=== PATIENT | female | born 1950 | race Caucasian/White ===

== ENCOUNTER 2016-12-19 06:31 | Day surgery (SDC) | payer MEDICARE, MEDICAID ==
[~2016-12-19 06:31] MED LIST: Buffered Lidocaine 1% SYRIN* 3 ML/SYR SYRINGE INTRADERM ONE
[2016-12-19] MEDS ORDERED: Silver Nitrate/Potassium Nitr* 1 EA STICK ONE (07:28)
[2016-12-19] MEDS ORDERED: Lidocaine 1% INJ* 10 MG/ML 30 ML SDV ONE (07:37)
[2016-12-19] MEDS ORDERED: Midazolam* 1 MG/ML 5 ML VIAL (5 MG) ONE ×2 (07:52→08:21)
[2016-12-19] MEDS ORDERED: fentaNYL* 50 MCG/ML 2 ML VIAL (100 MCG VIAL) ONE (08:12)
[2016-12-19] MEDS ORDERED: Dexamethasone IV* 4 MG/ML 1 ML (4 MG) ONE (08:15)
[2016-12-19] MEDS ORDERED: HYDROmorphone* 1 MG/ML 1 ML SYR IV PRN (08:35)
[2016-12-19] MEDS ORDERED: diPHENhydraMINE IV* 50 MG/ML 1 ml VIAL (BENADRYL) IV PRN (08:35)
[2016-12-19] MEDS ORDERED: fentaNYL* 50 MCG/ML 2 ML VIAL (100 MCG VIAL) IV PRN (08:35)
[2016-12-19] MEDS ORDERED: Ondansetron INJ* 2 MG/ML VIAL IV PRN (08:35)
[2016-12-19] MEDS ORDERED: Ondansetron INJ* 2 MG/ML VIAL ONE (08:37)
[2016-12-19 10:45] VITALS: BP 145/77
--- NOTE | 2016-12-19 20:57 | OP ---
DATE OF OPERATION: 12/19/16 [facility] DATE OF : 52 SURGEON: Elizabeth Rodriguez MD SPINNING MULE OPERATOR: None. ANESTHESIOLOGIST: Patrick Monahan MD ANESTHESIA: MAC and local. PRE-OP DIAGNOSIS: Postmenopausal bleeding, abnormal ultrasound findings. POST-OP DIAGNOSIS: Postmenopausal bleeding, abnormal ultrasound findings. OPERATIVE PROCEDURE: Hysteroscopy, D and C. ESTIMATED BLOOD LOSS: Minimal. SPECIMENS: Endometrial curettings. FLUIDS: Crystalloid. DRAINS: Bladder was drained of urine prior to the procedure. FINDINGS: On inspection of the uterine cavity, some polypoid appearing tissue was noted in the lower left uterine segment. There is also small ridge of tissue just above that slightly to the left and there were signs in the left upper uterine cavity the endometrium appeared irritated, otherwise the cavity appeared normal. DESCRIPTION OF PROCEDURE: After informed consent was signed, the patient was taken to the operating room where she was given monitored anesthesia care. She was prepped and draped in the dorsal lithotomy position in Yevgeniy stirrups. Speculums were placed into the vagina to expose the cervix. The anterior lip of the cervix was grasped with a single-tooth tenaculum. A paracervical block was given with 16 cc of lidocaine at 2, 5, 7, and 10 o'clock positions around the cervix. The uterus was sounded to 10 cm. Cervix was dilated and the hysteroscope was assembled and inserted through the cervix into the uterine cavity. The previously mentioned findings were noted. The hysteroscope was then removed and a sharp curettage was done. The specimen was sent to pathology for further evaluation. The tenaculum was then removed and good hemostasis was seen with silver nitrate. The speculums were then removed. The patient was cleaned, placed back in the supine position, awakened from anesthesia and moved to the recovery room in stable condition. [id number]/[facility] #: [id number] MTDD
== END 2016-12-19 11:01 | disposition home or self-care (01) ==
LOC: OR 06:31
PROVIDERS: ATTEND Obstetrics & Gynecology
DX: N95.0 Postmenopausal bleeding (principal); R93.8 Abnormal findings on diagnostic imaging of other specified body structures; I47.1 Supraventricular tachycardia; E03.9 Hypothyroidism, unspecified; Z87.891 Personal history of nicotine dependence; E66.9 Obesity, unspecified
CPT/HCPCS: 88305; A9270-GY; J1100; J2001; J2250; J2405; J3010

== ENCOUNTER 2017-05-08 07:00 | Inpatient (IN) | payer MEDICARE, MEDICAID ==
--- NOTE | 2017-05-01 14:40 | HP ---
HISTORY AND PHYSICAL: DATE OF ADMISSION/SURGERY: 05/08/17 SURGEON: Coral Sales MD * (DICTATED BY DANIELA AHMADI) PROCEDURE: Right total knee arthroplasty. CHIEF COMPLAINT: Right knee pain. HISTORY OF PRESENT ILLNESS: Ms. Guardado is a 67-year-old female with complaints of right knee pain secondary to advanced osteoarthritis. She has failed conservative management and has elected to proceed with a right total knee arthroplasty, which is scheduled for 05/08/[address] Sales. PAST MEDICAL HISTORY: Supraventricular tachycardia, GERD, AFib, hyperlipidemia , hypothyroidism. PAST SURGICAL HISTORY: Tonsillectomy, melanoma removal, eye surgery, cardiac catheterization, breast biopsy, appendectomy, D and C, and ankle surgery. CURRENT MEDICATIONS: 1. Digoxin 125 mcg every other day except Friday and Friday. 2. Turmeric. 3. Levothyroxine 25 mcg daily. 4. Lansoprazole 15 mg twice daily. 5. Loratadine 10 mg daily. 6. Nu-Mag. 7. Probiotic. 8. Vitamin D3. 9. Tylenol. 10. Lexapro 10 mg daily. ALLERGIES: To MORPHINE causing hallucinations, PERCOCET causing vomiting. FAMILY HISTORY: Diabetes, hypertension, stroke, cancer, cirrhosis. SOCIAL HISTORY: She is a 67-year-old female. She lives alone. She does not smoke, use drugs or alcohol. REVIEW OF SYSTEMS: A complete 14-point review of systems is reviewed with the patient and is positive for occasional palpitations and hypothyroidism. She denies any anesthesia problems, history of DVT or bleeding disorders. PHYSICAL EXAMINATION GENERAL: She is well developed, well nourished, in no acute distress. VITAL SIGNS: She stands 5 feet 8 inches tall, weighs 248 pounds. Blood pressure 140/80, heart rate 56. HEENT: Normocephalic, atraumatic. NECK: Supple. No palpable lymph nodes. PULMONARY: Lungs are clear to auscultation bilaterally. CARDIO: Regular rate and rhythm. Strong S1, S2. ABDOMEN: Soft, nontender, nondistended. NEUROLOGICAL: She is alert and oriented x3. Cranial nerves II through XII are intact. MUSCULOSKELETAL: Right lower extremity, the skin is intact. She has no open wounds or abrasions. She has tenderness over the medial and lateral joint line. Her lower extremity muscle group strengths are intact at 5/5. She has 2+ dorsalis pedis pulses and intact sensation. ASSESSMENT AND PLAN: Ms. Guardado is a 67-year-old female with complaints of right knee pain secondary to severe osteoarthritis. She has failed conservative management and has elected to proceed with a right total knee arthroplasty, which is scheduled for 05/08/[address] Sales discussed the risks and benefits of the surgery at today's visit and all of her questions were answered. Coumadin and Colace were sent to her pharmacy for postoperative DVT prophylaxis. I have not sent pain medications until we can find out which medicine she can tolerate and she will see Dr. Sales back 2 weeks after the surgery. DANIELA AHMADI [id number]/[facility] #: [id number] MTDD
[~2017-05-08 07:00] MED LIST changes: +Buffered Lidocaine 0.9% SYRIN* 5 ML/SYR SYRINGE INTRADERM ONE; -Buffered Lidocaine 1% SYRIN* 3 ML/SYR SYRINGE INTRADERM ONE; +Famotidine IV* 10 MG/ML 2 ML (20 mg) IV ONE; +HYDROmorphone* 1 MG/ML 1 ML CARPUJECT IV PRN; +PROCHLORPERAZINE INJ 5 MG/ML 2 ML VIAL IV PRN; +fentaNYL* 50 MCG/ML 2 ML VIAL (100 MCG VIAL) IV PRN
[2017-05-08] MEDS ORDERED: Famotidine IV* 10 MG/ML 2 ML (20 mg) ONE (07:31)
[2017-05-08] MEDS ORDERED: ceFAZolin 1 GM ADVAN(*) 1 GM ADDV.VIAL IVPB ONE (07:31)
[2017-05-08] MEDS ORDERED: ceFAZolin 2 GM PREMIX (*) 50 ML IVPB ONE (07:31)
[2017-05-08] MEDS ORDERED: fentaNYL* 50 MCG/ML 2 ML VIAL (100 MCG VIAL) ONE (08:10)
[2017-05-08] MEDS ORDERED: KETAMINE HCL* 50 MG/ML 10 ML VIAL ONE (08:10)
[2017-05-08] MEDS ORDERED: Midazolam* 1 MG/ML 10 ML VIAL (10 MG) ONE (08:10)
[2017-05-08] MEDS ORDERED: EPHEDrine (Pressors)* 50 MG/ML VIAL IV PUSH PRN (10:28)
[2017-05-08] MEDS ORDERED: Nalbuphine* 20 MG/ML 1 ML VIAL IV PRN (10:28)
[2017-05-08] MEDS ORDERED: Ketorolac INJ* 15 MG/ML 1 ML VIAL IV PRN (10:28)
[2017-05-08] MEDS ORDERED: Ondansetron INJ* 2 MG/ML VIAL IV PRN (10:28)
[2017-05-08] MEDS ORDERED: PROCHLORPERAZINE INJ 5 MG/ML 2 ML VIAL IV PRN (10:28)
[2017-05-08] MEDS ORDERED: diPHENhydraMINE IV* 50 MG/ML 1 ml VIAL (BENADRYL) IV PRN (10:28)
[2017-05-08] MEDS ORDERED: Lactated Ringers 500 ml BAG* 500 ML IV PRN (10:28)
[2017-05-08] MEDS ORDERED: HYDROcodone/ACETAMIN 5-325 MG* 1 TAB PO PRN (10:28)
[2017-05-08] MEDS ORDERED: Hetastarch in NS* 200 ML IV PRN (10:28)
[2017-05-08] MEDS ORDERED: Ropivacaine 0.2% EPIDURAL* 200 MG/100 ML BAG EPIDURAL SCH (11:00)
[2017-05-08] MEDS ORDERED: Hetastarch in NS* 500 ML IV ONE (11:07)
[2017-05-08] MEDS ORDERED: Ropivacaine 0.2% EPIDURAL* 200 MG/100 ML BAG EPIDURAL ONE (11:11)
[2017-05-08] MEDS ORDERED: Dexamethasone IV* 4 MG/ML 1 ML (4 MG) ONE (12:10)
[2017-05-08] MEDS ORDERED: Lidocaine 2% PF * 5 ML VIAL ONE (12:10)
[2017-05-08] MEDS ORDERED: Phenylephrine IV* 40 MCG/ML 10 ML SYRINGE ONE (12:10)
[2017-05-08] MEDS ORDERED: Ondansetron INJ* 2 MG/ML VIAL ONE (12:10)
[2017-05-08] MEDS ORDERED: Propofol* 10 MG/ML 20 ML BTL IV PUSH ONE (12:10)
[2017-05-08] MEDS ORDERED: Scopolamine 1.5 mg* PATCH ONE (12:10)
[2017-05-08] MEDS ORDERED: Propofol* 500 MG/50 ML BTL ONE (12:11)
[2017-05-08] MEDS ORDERED: Bisacodyl SUPP* 10 MG SUPP PR PRN (12:37)
[2017-05-08] MEDS ORDERED: ceFAZolin 1 GM VIAL(*) 1 GM in NS 0.9% 50 ML* 50 ML IVPB SCH (13:00)
--- NOTE | 2017-05-08 13:36 | RAD ---
Indication: Immediate postop exam following RIGHT total knee replacement. Comparison: April 30, 2017 Technique: Portable AP and cross table lateral views RIGHT knee. Report: Status post total knee replacement. Anterior surgical drain in place. Post-op fluid and gas is seen in the joint space and anterior subcutaneous tissues. Alignment is anatomic. No periprosthetic fracture evident. IMPRESSION: Unremarkable immediate postoperative appearance following RIGHT knee replacement.
[2017-05-08] MEDS ORDERED: PROCHLORPERAZINE INJ 5 MG/ML 2 ML VIAL ONE (14:35)
--- NOTE | 2017-05-08 16:16 | CONS ---
HOSPITAL MEDICINE CONSULTATION REPORT: DATE OF CONSULT: 05/08/17 ATTENDING PHYSICIAN: Coral Sales MD CONSULTING PHYSICIAN: Lis Cooper MD (dictation provided by Patsy Hung NP) . CHIEF COMPLAINT: Right knee pain. HISTORY OF PRESENT ILLNESS: Ms. Guardado is a 67-year-old female with a past medical history of atrial fibrillation, who presents to the hospital today with plan for elective right total knee replacement. Please see the dictated H and P from Dr. Sales for complete details. In brief, the patient had initially opted for medical therapy, but when conservative measures failed, planned for a right total knee replacement today. Ms. Guardado was seen in consultation preoperatively by Dr. Ye from Cardiology. He did request a Holter monitor, which showed no high risk features on the monitor and only some mild bradycardia. He did recommend that the patient decrease her digoxin to a Friday , Friday, Friday dose only, but that no further cardiac testing was indicated. He also stated that the patient could hold aspirin prior to surgery and could be started when approved per Orthopedics. The patient is not currently anticoagulated with a CHADS VASC-2 score of 1. Radha states that she was feeling well prior to surgery other than her knee pain with no acute complaints. PAST MEDICAL HISTORY: 1. Osteoarthritis. 2. Atrial fibrillation. 3. Paroxysmal supraventricular tachycardia. 4. GERD. 5. Obesity. MEDICATIONS: As outpatient are: 1. Aspirin 81 mg p.o. q.p.m. 2. Lansoprazole 15 mg p.o. b.i.d. 3. Tylenol 1000 mg p.o. b.i.d. 4. Cholecalciferol 5000 units p.o. q.p.m. 5. Digoxin 0.125 mg p.o. Friday, Friday, Friday. 6. Lexapro 10 mg p.o. q.p.m. 7. Levothyroxine 25 mcg p.o. q.a.m. 8. Magnesium chloride 71.5 mg p.o. q.p.m. 9. Multivitamin with mineral 1 tab p.o. q.p.m. 10. Turmeric 600 mg 2 caps p.o. q.p.m. 11. Ultimate probiotic 1 cap p.o. q.p.m. ALLERGIES: MORPHINE and OXYCODONE. FAMILY HISTORY: The patient reports history of diabetes, hypertension, stroke, cancer, and cirrhosis in the family. SOCIAL HISTORY: No report of alcohol, tobacco, or drug use. The patient lives alone. REVIEW OF SYSTEMS: A 14-point review of systems was completed with the patient and all those not mentioned above are negative. PHYSICAL EXAM: Vital Signs: Temperature 97.0, pulse rate 59, respiratory rate 16, O2 saturation 100% on 5 L nasal cannula in the PACU, blood pressure 130/64. General: Ms. Guardado is sitting up in the bed. She is in no acute distress. Neuro: She is alert and oriented x3. She moves all extremities equally. There is no facial asymmetry or focal weakness. Extraocular movements are intact. Heart: S1, S2. No murmur, rub, or gallop and regular. Lungs: Clear to auscultation bilaterally with no accessory muscle use and good aeration. Abdomen: Soft, nontender with bowel sounds positive x4. Extremities: No cyanosis or edema. Skin: Intact. DIAGNOSTIC STUDIES/LAB DATA: Preoperatively on 04/29/17, the patient had WBC of 8.5, hemoglobin 13.2, hematocrit 41, platelet count 293,000. Sodium 138, potassium 4.7, chloride 100, serum bicarbonate 34, BUN 18, creatinine 0.47, glucose 98. ASSESSMENT/PLAN: Ms. Guardado is a 67-year-old female with past medical history of supraventricular tachycardia and atrial fibrillation, on digoxin and aspirin therapy outpatient, who presented to the hospital today for a right total knee replacement. Our recommendations are as follows: 1. Postop day 0, status post right total knee replacement: Management will be per Orthopedic Surgery. The patient will have PT and OT. She will have a bowel regimen with pain medication and we will monitor H and H closely. 2. Atrial fibrillation with episodes of supraventricular tachycardia: Appreciate recommendations from Dr. Ye, who saw her outpatient. The patient is noted to be on digoxin 3 times a week. She is bradycardic at this point with a HR running between 45 and 60 at this point. We will continue digoxin per routine. She can resume aspirin at the conclusion of her DVT prophylaxis per the recommendation of Dr. Ye. Again, she is not anticoagulated and her CHADS VASC- 2 score is 1. 3. Gastroesophageal reflux disease. Continue lansoprazole. 4. Hypothyroidism. Continue levothyroxine. 5. DVT prophylaxis with Lovenox and warfarin per Ortho. 6. Code status is full code. TIME SPENT: Approximately 60 minutes were spent on the consultation of the patient, more than half time spent with the patient at the bedside reviewing the events leading up to this hospitalization, performing the physical examination, and reviewing my plan of care. PATSY HUNG NP [id number]/[facility] #: [id number] KITTY
[2017-05-08] MEDS ORDERED: Warfarin TAB(*) 6 MG PO ONE (17:00)
[2017-05-08] MEDS: Enoxaparin(*) 40 MG/0.4 ML SYR SUBCUT SCH (17:26)
[2017-05-08] MEDS: Lactobacillus Acidophilu (GG)* 1 CAP CAP PO SCH (17:51)
[2017-05-08] MEDS: Citalopram TAB* 20 MG PO SCH (17:51)
[2017-05-08] MEDS: TURMERIC 600 MG PO SCH (17:51)
[2017-05-08] MEDS: Cholecalciferol TAB* 1000 UNITS PO SCH (17:52)
[2017-05-08] MEDS: Magnesium Chloride EC TAB* 64 MG PO SCH (17:52)
[2017-05-08] MEDS: ceFAZolin 1 GM in Dextrose (*) 1 GM/50 ML BAG IVPB SCH (17:52)
[2017-05-08] MEDS ORDERED: MINERALS PO SCH (18:00)
[2017-05-08] MEDS ORDERED: MULTIPLE VITAMINS PO SCH (18:00)
[2017-05-08] MEDS: Acetaminophen TAB* 325 MG PO SCH (19:46)
[2017-05-08] MEDS: Docusate CAP* 100 MG PO SCH (19:46)
[2017-05-08] MEDS: Magnesium Hydroxide LIQ* 30 ML UDC PO SCH (19:48)
[2017-05-09] MEDS: ceFAZolin 1 GM in Dextrose (*) 1 GM/50 ML BAG IVPB SCH ×2 (01:53→10:37)
[2017-05-09] MEDS ORDERED: Ondansetron INJ* 2 MG/ML VIAL IV PRN (06:01)
[2017-05-09] MEDS ORDERED: HYDROmorphone* 1 MG/ML 1 ML CARPUJECT IV SLOW PU PRN (06:01)
[2017-05-09] MEDS ORDERED: diPHENhydraMINE PO* 25 MG PO PRN (06:01)
[2017-05-09] MEDS: Levothyroxine TAB* 25 MCG TAB PO SCH (06:05)
[2017-05-09 06:47] LABS: Hematocrit 32 % (35-47); Hemoglobin 10.4 g/dl (12.0-16.0)
[2017-05-09 06:57] LABS: BUN/Creatinine Ratio 17.3 (8-20); Calcium 8.3 mg/dL (8.6-10.3); EGFR African American 99.4 (>60); EGFR Non-African American 77.3 (>60)
[2017-05-09] MEDS: HYDROmorphone TAB* 2 MG PO PRN ×3 (07:18→15:49)
--- NOTE | 2017-05-09 07:38 | PN ---
Progress Note - Progress Note Date of Service: 05/09/17 SOAP: Subjective: Pt. is alert, pain well controlled, states she does not want to go home, wants to go to a rehab facility. Objective: RLE - drain removed, tip intact, 400 cc ss drainage. distally nvi with +df/pf, full slt, 2+ dp pulse. dressing c/d/i. Vital Signs: Temp Pulse Resp BP Pulse Ox 98.3 F 57 16 131/49 94 05/09/17 03:59 05/09/17 03:59 05/09/17 07:18 05/09/17 03:59 05/09/17 03:59 Assessment: 67 yo F pod 1 s/p RTKA Plan: wbat pt/ot lovenox today, coumadin tonight plan home vs snf rehab
[2017-05-09] MEDS: Magnesium Hydroxide LIQ* 30 ML UDC PO SCH ×2 (09:08→19:58)
[2017-05-09] MEDS: Docusate CAP* 100 MG PO SCH ×2 (09:09→19:58)
[2017-05-09] MEDS: Vitamin THERAPEUTIC TAB PO SCH (09:09)
[2017-05-09] MEDS: Acetaminophen TAB* 325 MG PO SCH ×2 (09:09→21:33)
--- NOTE | 2017-05-09 13:11 | OP ---
OPERATIVE REPORT: DATE OF OPERATION: 05/08/17 DATE OF : 52 ATTENDING SURGEON: Coral Sales MD. CRIME ANALYST: DANIELA Purcell Ms. Dumont did help throughout the procedure with preparation of the leg, wound retraction, manipul ation of the knee, and wound closure. ANESTHESIOLOGIST: Dr. Wheeler. ANESTHESIA: Spinal. PRE-OP DIAGNOSIS: Severe end-stage degenerative osteoarthritis of the right knee joint with valgus deformity. POST-OP DIAGNOSIS: Severe end-stage degenerative osteoarthritis of the right knee joint with valgus deformity. OPERATIVE PROCEDURE: Right total knee arthroplasty. HARDWARE USED: [employer] cemented total knee hardware. Two packages of Simplex bone cement were used. For the femur, a size 6 narrow right posterior stabilized Oxinium femoral component. Fo r the tibia, a size 5 right tibial base plate. For the insert, an 11 mm size 5/6 posterior stabiliz ed articular insert and for the patella a 35 mm 3-peg all poly patella. TOURNIQUET TIME: 54 minutes. ESTIMATED BLOOD LOSS: 300 cc. COMPLICATIONS: None. SPECIMEN: Bone and cartilage from the right knee joint, sent to Pathology. BRIEF HISTORY/INDICATIONS: Ms. Guardado is a 67-year-old female with years of severe right knee pain an d valgus deformity. She failed conservative treatment with anti- inflammatories, pain medications, intraarticular injections, and physical therapy. Her radiographs confirmed end-stage arthritis with lateral dtxw-pr-eyuw contact. She elected to undergo right total knee arthroplasty due to continued pain and decreased quality of life. Informed consent was obtained from the patient. She understood the risks of the procedure included, but were not limited to, bleeding, infection, damage to nearby structures, continued pain, need for further surgery, intraoperative fracture, nerve palsy, hardwar e failure or loosening, knee stiffness, loss of motion, stroke, heart attack, blood clot, and . She wishes to proceed. INTRAOPERATIVE FINDINGS: Intraoperatively, the patient was noted to have tricompartmental loss of c artilage. She had a valgus deformity of 10 degrees, which was corrected to anatomic. 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 DESCRIPTION OF PROCEDURE: Ms. Guardado was identified in the preanesthesia unit. Her right lower extre mity was marked as the correct operative side. Informed consent was signed and placed in the chart. The patient was taken to the operating room and placed under spinal anesthesia. A Cotto catheter was placed. Tourniquet was placed on the right thigh. Right lower extremity was prepped and draped in the usual sterile fashion. Preop time-out was made to correctly identify the patient's side and site. Appropriate perioperative antibiotics were given within 1 hour of incision. Tourniquet was inflated and total tourniquet time for this procedure was 54 minutes. A midline inci raymundo of 15 cm was made with a 10-blade and carried down to the extensor mechanism. A new 10-blade w as used to make a standard medial parapatellar arthrotomy. Electrocautery was used to subperiosteal ly elevate the soft tissue off the superomedial tibia to the mid sagittal plane. The knee was flexe d up. The anterior horn of the lateral meniscus and ACL were sharply released. A drill was used to enter the distal femur. Intramedullary distal femoral cutting guide was pinned on the distal femur . Lateral femoral condylar hypoplasia was noted and accounted for. 9 mm of distal femur was carefu lly removed with an oscillating saw. Next, the external rotation guide was pinned on the distal fem ur. The distal femur was sized to a size 6. A size 6 multi-cutting jig was pinned on the distal fe mur. Oscillating saw was used to make the appropriate 4 chamfer cuts. The PCL was completely released. The tibia was subluxed anteriorly. Extramedullary tibial cutting g uide was pinned on the proximal tibia. Oscillating saw was used to make the appropriate proximal ti bial cut perpendicular to the mechanical axis of the tibia. The bone was carefully removed. The kn ee was brought out into full extension. There was good medial and lateral ligamentous balancing. S pacer block had good fit with the knee in full extension. Flexion and extension gaps were well arelis nced. The knee was flexed up. Lamina fuel cell assembler was placed both medially and laterally. Any remaining menis cus was carefully removed using electrocautery. Any posterior osteophytes were removed using a cure tte. A size 6 narrow femoral component was impacted on to the right femur. This had excellent fit. The box for the posterior stabilized implant was prepared using a reamer and box cut osteotome. A n 11-mm insert trial was placed and the knee was taken through a range of motion. The knee had full extension to 130 degrees of flexion, with good patellofemoral tracking. Patella was everted. A 9 mm of patellar bone and cartilage were carefully removed using an oscillat ing saw. The 3-peg holes were drilled through the size 35 guide. A 35 trial patella was placed and the knee was taken through a range of motion. There was satisfactory patellofemoral tracking. All trials were carefully removed. The tibia was subluxed anteriorly and sized to a size 5. Proxim al tibia was prepared using a size . All bony cut surfaces were copiously irrigated with ster ile saline and dried. Final implants were cemented into place starting with the tibia, followed by the femur, and lastly the patella. An 11-mm insert trial was placed and the knee was brought out in to full extension. Tourniquet was turned down. The knee was copiously irrigated with sterile salin e. Electrocautery was used to obtain meticulous hemostasis. Once the cement had fully cured, the insert trial was removed. Any excess cement was carefully lotus duc around the hardware and capsule. Final insert chosen was an 11-mm posterior stabilized articula r insert size 5/6. This was locked into position on tibial tray. Stability of the insert was check ed and rechecked and noted to be stable. The extensor mechanism was closed using interrupted #1 Vicryl's over a medium Hemovac drain. The re st of the incision was closed in a layered fashion using 0 and 2-0 Vicryl. Skin was closed using ru nning 3-0 nylon suture. Sterile Xeroform, 4x4's, and Webril were used to cover the incision. Ben w rap and cold pack were placed over this. The patient's anesthesia was reversed without difficulty. She was taken to the PACU in stable condition. Intended weightbearing will be weightbearing as tole rated. Intended DVT prophylaxis will be Coumadin with a Lovenox bridge. [id number]/[facility] #: [id number]
[2017-05-09] MEDS: Enoxaparin(*) 40 MG/0.4 ML SYR SUBCUT SCH (14:00)
--- NOTE | 2017-05-09 14:21 | PN ---
Subjective Date of Service: 05/09/17 Interval History: Ms. Guardado reports some right knee pain but it is manageable. She denies any other complaint including chest pain, SOB, nausea, or abdominal pain. Objective Active Medications: Acetaminophen (Tylenol Tab*) 975 mg PO BID DAMIR Acetaminophen (Tylenol Tab*) 650 mg PO Q4H PRN Bisacodyl (Dulcolax Supp*) 10 mg MN DAILY PRN Cholecalciferol (Vitamin D Tab*) 5,000 units PO QPM DAMIR Citalopram Hydrobromide (Celexa Tab*) 20 mg PO QPM DAMIR Digoxin (Lanoxin Tab*) 0.125 mg PO MoWeFr@1700 DAMIR Diphenhydramine HCl (Benadryl Po*) 25 mg PO Q6H PRN Docusate Sodium (Colace Cap*) 100 mg PO BID DAMIR Enoxaparin Sodium (Lovenox(*)) 40 mg SUBCUT Q24H DAMIR Hydromorphone HCl (Dilaudid Tab*) 4 mg PO Q6H PRN Hydromorphone HCl (Dilaudid Tab*) 2 mg PO Q4H PRN Hydromorphone HCl (Dilaudid Iv*) 1 mg IV SLOW PU Q4H PRN Lactated Ringer's (Lactated Ringers 1000 Ml Bag*) 1,000 mls @ 100 mls/hr IV PER RATE DAMIR Lactobacillus Rhamnosus (Culturelle*) 1 cap PO QPM DAMIR Lactulose (Lactulose*) 30 ml PO Q6H PRN Levothyroxine Sodium (Synthroid Tab*) 25 mcg PO QAM@0600 DAMIR Magnesium Chloride (Slow Mag Ec Tab*) 64 mg PO QPM DAMIR Magnesium Hydroxide (Milk Of Magnesia Liq*) 30 ml PO BID DAMIR Multivitamins (Theragran Tab*) 1 tab PO DAILY [facility] Non-Formulary Medication (Tumeric 600 Mg) 2 cap PO QPM DAMIR Ondansetron HCl (Zofran Inj*) 4 mg IV Q6H PRN Pharmacy Profile Note (Scopolomine Patch Remove*) 1 note PATCH OFF .AFTER 72 HOURS ONE Pharmacy Profile Note (Coumadin Daily Reminder*) 1 note FOLLOW UP 1700 DAMIR Warfarin Sodium (Coumadin Tab(*)) 8 mg PO ONCE@1700 ONE Vital Signs 05/08/17 05/08/1705/08/17 14:30 15:00 15:30 Temperature Pulse Rate 50 55 63 Respiratory 14 18 15 Rate Blood Pressure 143/70 118/59 132/65 (mmHg) O2 Sat by Pulse 95 96 93 Oximetry 05/08/17 05/08/17 05/08/17 15:48 16:00 16:30 Temperature 97.2 F 97.0 F Pulse Rate 53 54 53 Respiratory 16 15 14 Rate Blood Pressure 142/55 137/65 132/65 (mmHg) O2 Sat by Pulse 96 96 Oximetry 05/08/17 05/08/17 05/08/17 16:50 16:55 17:15 Temperature 96.7 F Pulse Rate 55 55 Respiratory 16 16 16 Rate Blood Pressure 125/65 125/65 (mmHg) O2 Sat by Pulse 97 97 Oximetry 05/08/17 05/08/17 05/08/17 17:56 18:44 20:00 Temperature 97.5 F 97.8 F Pulse Rate 58 62 Respiratory 17 16 16 Rate Blood Pressure 119/61 105/45 (mmHg) O2 Sat by Pulse 97 95 Oximetry 05/08/17 05/08/17 05/08/17 20:42 22:00 22:43 Temperature 99.2 F 98.0 F Pulse Rate 61 59 Respiratory 13 12 14 Rate Blood Pressure 110/52 100/38 (mmHg) O2 Sat by Pulse 97 95 Oximetry 05/09/17 05/09/17 05/09/17 00:00 02:10 03:23 Temperature 97.7 F Pulse Rate 58 Respiratory 16 16 Rate Blood Pressure 107/46 (mmHg) O2 Sat by Pulse 97 97 Oximetry 05/09/17 05/09/17 05/09/17 03:59 05:42 05:51 Temperature 98.3 F Pulse Rate 57 Respiratory 16 16 16 Rate Blood Pressure 131/49 (mmHg) O2 Sat by Pulse 94 Oximetry 05/09/17 05/09/17 05/09/17 07:18 07:26 08:00 Temperature 97.8 F Pulse Rate 53 Respiratory 16 16 16 Rate Blood Pressure 127/52 (mmHg) O2 Sat by Pulse 100 Oximetry 05/09/17 05/09/17 05/09/17 09:16 10:16 11:22 Temperature 97.4 F Pulse Rate 58 Respiratory 16 16 16 Rate Blood Pressure 141/63 (mmHg) O2 Sat by Pulse 98 Oximetry 05/09/17 05/09/17 11:34 13:34 Temperature Pulse Rate Respiratory 16 16 Rate Blood Pressure (mmHg) O2 Sat by Pulse Oximetry Oxygen Devices in Use Now: None Appearance: Female sitting up in chair in NAD Eyes: No Scleral Icterus Ears/Nose/Mouth/Throat: Mucous Membranes Moist Neck: Trachea Midline Respiratory: Symmetrical Chest Expansion and Respiratory Effort, Clear to Auscultation Cardiovascular: NL Sounds; No Murmurs; No JVD, No Edema Abdominal: NL Sounds; No Tenderness; No Distention Lymphatic: No Cervical Adenopathy Extremities: No Edema Skin: No Rash or Ulcers Neurological: Alert and Oriented x 3, NL Muscle Strength and Tone Nutrition: Taking PO's Result Diagrams: 05/09/17 06:28 05/09/17 06:28 Assess/Plan/Problems-Billing Assessment: Ms. Guardado is a 67 yo female with a PMH of afib who was admitted on 05/08/17 for a right knee replacement. - Patient Problems (1) Status post right knee replacement Comment: - POD # 1. - Management per ortho. - Pain meds prn, bowel regimen. - PT/OT. - Monitor H/H. (2) Afib Comment: - Rate controlled and regular. - Continue digoxin. (3) GERD (gastroesophageal reflux disease) Comment: - Switch to omeprazole. (4) Hypothyroidism Comment: - Continue levothyroxine. (5) DVT prophylaxis Comment: - Lovenox with warfarin. (6) Full code status Status and Disposition: Inpatient with disposition per ortho. Hospital Medicine will sign off for now but please do not hesitate to contact us with further questions or concerns.
[2017-05-09] MEDS: TURMERIC 600 MG PO SCH (16:34)
[2017-05-09] MEDS: Citalopram TAB* 20 MG PO SCH (16:38)
[2017-05-09] MEDS: Cholecalciferol TAB* 1000 UNITS PO SCH (16:38)
[2017-05-09] MEDS: Magnesium Chloride EC TAB* 64 MG PO SCH (16:38)
[2017-05-09] MEDS: Lactobacillus Acidophilu (GG)* 1 CAP CAP PO SCH (16:40)
[2017-05-09] MEDS ORDERED: Digoxin TAB* 0.125 MG PO SCH (17:00)
[2017-05-09] MEDS ORDERED: Warfarin TAB(*) 4 MG PO ONE (17:00)
[2017-05-09] MEDS: HYDROmorphone TAB* 4 MG PO PRN (19:59)
[2017-05-10] MEDS: Acetaminophen TAB* 325 MG PO PRN ×3 (02:28→16:14)
[2017-05-10] MEDS: HYDROmorphone TAB* 4 MG PO PRN ×2 (02:29→07:39)
[2017-05-10] MEDS: Levothyroxine TAB* 25 MCG TAB PO SCH (06:09)
[2017-05-10] MEDS: Omeprazole CAP* 20 MG PO SCH (06:10)
[2017-05-10 08:25] LABS: Hematocrit 32 % (35-47); Hemoglobin 10.6 g/dl (12.0-16.0)
[2017-05-10] MEDS: Magnesium Hydroxide LIQ* 30 ML UDC PO SCH ×2 (09:03→20:26)
[2017-05-10] MEDS: Docusate CAP* 100 MG PO SCH ×2 (09:03→20:25)
[2017-05-10] MEDS: Acetaminophen TAB* 325 MG PO SCH ×2 (09:03→20:25)
[2017-05-10] MEDS: Vitamin THERAPEUTIC TAB PO SCH (09:03)
--- NOTE | 2017-05-10 10:41 | PN ---
Progress Note - Progress Note Date of Service: 05/10/17 SOAP: Subjective: Pt. is alert, nad. Objective: RLE - dressing changed, inc c/d/i. distally nvi. Vital Signs: Temp Pulse Resp BP Pulse Ox 98.2 F 51 18 130/53 94 05/10/17 07:52 05/10/17 07:52 05/10/17 09:39 05/10/17 07:52 05/10/17 08:00 Laboratory Results - last 24 hr 05/10/17 05/10/17 08:05 08:05 Hgb 10.6 L Hct 32 L INR (Anticoag Therapy) 1.56 H Assessment: 67 yo F pod 2 s/p RTKA Plan: wbat rle pt/ot 6 mg coumadin tonight, lovenox today plan d/c to [facility] tomorrow
[2017-05-10] MEDS: Enoxaparin(*) 40 MG/0.4 ML SYR SUBCUT SCH (12:36)
[2017-05-10] MEDS: HYDROmorphone TAB* 2 MG PO PRN ×3 (13:58→22:04)
[2017-05-10] MEDS ORDERED: Warfarin TAB(*) 6 MG PO SCH (17:00)
[2017-05-10] MEDS: Magnesium Chloride EC TAB* 64 MG PO SCH (17:39)
[2017-05-10] MEDS: TURMERIC 600 MG PO SCH (17:39)
[2017-05-10] MEDS: Lactobacillus Acidophilu (GG)* 1 CAP CAP PO SCH (17:39)
[2017-05-10] MEDS: Cholecalciferol TAB* 1000 UNITS PO SCH (17:39)
[2017-05-10] MEDS: Citalopram TAB* 20 MG PO SCH (17:40)
[2017-05-11] MEDS: HYDROmorphone TAB* 2 MG PO PRN ×3 (03:12→11:08)
[2017-05-11] MEDS: Omeprazole CAP* 20 MG PO SCH (05:56)
[2017-05-11] MEDS: Levothyroxine TAB* 25 MCG TAB PO SCH (05:56)
[2017-05-11 07:55] LABS: Hematocrit 31 % (35-47); Hemoglobin 10.4 g/dl (12.0-16.0)
[2017-05-11] MEDS: Vitamin THERAPEUTIC TAB PO SCH (08:35)
[2017-05-11] MEDS: Acetaminophen TAB* 325 MG PO SCH (08:35)
[2017-05-11] MEDS: Docusate CAP* 100 MG PO SCH (08:37)
[2017-05-11] MEDS: Magnesium Hydroxide LIQ* 30 ML UDC PO SCH (08:37)
[2017-05-11] MEDS ORDERED: Scopolomine PATCH Remove* 1 NOTE MISC PATCH OFF ONE (10:30)
[2017-05-11 13:26] VITALS: BP 127/51
--- NOTE | 2017-05-11 13:52 | PN ---
Progress Note - Progress Note Date of Service: 05/11/17 SOAP: Subjective: [Pt is doing well. Pain is controlled. Doing well with PT. Denies Cp/SOB Objective: [PE- 67 y/o F NAD, A&Ox3 RLE- inc c/d/i, dressing changed, calf soft NT, +DF/PF ankle, NVI Vital Signs Temp Pulse Resp BP Pulse Ox 99.0 F 59 16 127/51 95 05/11/17 12:30 05/11/17 12:30 05/11/17 12:30 05/11/17 12:30 05/11/17 12:30 Laboratory Results - last 24 hr 05/11/17 05/11/17 07:41 07:41 Hgb 10.4 L Hct 31 L INR (Anticoag Therapy) 2.16 H Assessment: 67 yo F pod 3 s/p RTKA Plan: wbat rle pt/ot coumadin, hydromorphone and colace hold coumadin tonight, redraw tomorrow DC to [facility] today
--- NOTE | 2017-05-11 22:55 | DS ---
DISCHARGE SUMMARY: DATE OF SURGERY: 05/08/17 DATE OF DISCHARGE: 05/11/17 PROVIDER: Dr. Coral Sales * (DICTATED BY DANIELA INFANTE) ADMITTING DIAGNOSIS: Status post right total knee arthroplasty for treatment of severe right knee osteoarthritis. SECONDARY DIAGNOSES: 1. Supraventricular tachycardia. 2. Gastroesophageal reflux disease. 3. Atrial fibrillation. 4. Hyperlipidemia. 5. Hypothyroidism. CONSULTATIONS: 1. Medicine. 2. PT and OT. HISTORY OF PRESENT ILLNESS: Ms. Guardado is a 67-year-old female with complaints of right knee pain secondary to advanced osteoarthritis. She has failed conservative measures; therefore, elected to proceed with a right total knee arthroplasty with Dr. Sales on 05/08/17. HOSPITAL COURSE: The patient was admitted to [facility], [place] on . She underwent a right total knee arthroplasty. Postoperatively, she recovered in the short-stay surgical unit. On postop day 1, the Cotto was removed, she was able to urinate on her own. She was advanced to a regular diet without difficulty and her pain was controlled with oral Dilaudid. She was restarted on home medication. Labs and vitals remained stable. She was able to weight bear as tolerated on the right lower extremity. She advanced appropriately with physical therapy and occupational therapy. DVT prophylaxis was managed with Lovenox and Coumadin until she reached a therapeutic INR. By postop day 3, she was orthopedically and medically stable for discharge to [facility] for acute rehab. PHYSICAL EXAMINATION: General: A 67-year-old well-developed, well-nourished female, in no acute distress. Alert and oriented x3. Appropriate mood and affect. Right lower extremity, the incision is clean, dry, and intact. No signs of infection. Dressing was changed. Positive plantar flexion, dorsiflexion in the ankle. Calf, soft and nontender. +2 dorsalis pedis pulses. Sensation is intact to light touch distally. DISCHARGE CONDITION: Stable. DISCHARGE MEDICATIONS: Home medications continued at discharge to include: 1. Multivitamin 1 by mouth every morning. 2. Aspirin 81 mg by mouth at night. 3. Lansoprazole 15 mg by mouth twice a day. 4. Levothyroxine 25 mcg by mouth in the morning. 5. Escitalopram 10 mg by mouth every evening. 6. Magnesium chloride 64 mg tablet 71.5 mg by mouth every evening. 7. Digoxin 0.125 mg by mouth daily. 8. Turmeric 600 mg 2 capsules by mouth every evening. 9. Ultimate Strain Probiotic with trace minerals 1 cap by mouth every evening. 10. Vitamin D3 5000 units by mouth every evening. 11. Acetaminophen 500 mg to 1000 mg by mouth twice a day. New medications on discharge to include: 1. Docusate sodium 100 mg by mouth 2 to 3 times a day as needed for constipation. 2. Dilaudid 2 mg 1 to 1.5 tabs by mouth every 4 hours as needed for pain. 3. Coumadin 2 mg 1 to tablets by mouth every evening as directed by doctor. DISCHARGE INSTRUCTIONS: The patient is weightbearing as tolerated. It is okay for her to shower. No bathing, swimming, or submerging the wound. She should use gentle soap and water, cover with gauze, Ben, or tape. She should call the orthopedic office if she has increased drainage, redness, increased pain, or fever. She is to go to the ER with shortness of breath or chest pain. She should eat a diet high in fiber and fluids to prevent constipation. She should use stool softeners and to call us if she did not have a bowel movement within 48 hours. She should continue physical therapy and occupational therapy. The nurses to do wound checks and blood draws for INR. She should continue Coumadin for DVT prophylaxis. She should hold her Coumadin on 05/11/17 and redraw on Friday. She can continue hydromorphone for pain and Colace for constipation. The patient was instructed not to take aspirin or ibuprofen while on Coumadin. She will require antibiotics prior to any dental work in the future. She will follow up with Dr. Sales in 10 to 14 days for followup and suture removal. DANIELA INFANTE [id number]/[facility] #: [id number] [facility]
== END 2017-05-11 12:40 | DRG 470 ==
LOC: AA 07:00 → SSU 12:37
PROVIDERS: ADMIT Orthopaedic Surgery Adult Reconstructive Orthopaedic Surgery; ATTEND Orthopaedic Surgery Adult Reconstructive Orthopaedic Surgery
PROC: 0SRC0J9 Replacement of Right Knee Joint with Synthetic Substitute, Cemented, Open Approach (ICD-10-PCS; principal; 2017-05-08 09:00)
DX: M17.11 Unilateral primary osteoarthritis, right knee (principal); I47.1 Supraventricular tachycardia; I48.91 Unspecified atrial fibrillation; Z68.41 Body mass index [BMI] 40.0-44.9, adult; K21.9 Gastro-esophageal reflux disease without esophagitis; E78.5 Hyperlipidemia, unspecified; R00.1 Bradycardia, unspecified; M21.061 Valgus deformity, not elsewhere classified, right knee; E66.9 Obesity, unspecified; E03.9 Hypothyroidism, unspecified; Z85.820 Personal history of malignant melanoma of skin; Z88.5 Allergy status to narcotic agent; Z88.6 Allergy status to analgesic agent; Z83.3 Family history of diabetes mellitus; Z82.49 Family history of ischemic heart disease and other diseases of the circulatory system; Z80.9 Family history of malignant neoplasm, unspecified; Z82.3 Family history of stroke; Z83.79 Family history of other diseases of the digestive system; Q79.9 Congenital malformation of musculoskeletal system, unspecified; Z79.82 Long term (current) use of aspirin; Z79.01 Long term (current) use of anticoagulants
CPT/HCPCS: 36415; 80048; 85014; 85018; 85610; A9270-GY; C1776; J0690; J0780; J1100; J1170; J1650; J2250; J2405; J2704; J2795; J3010

== ENCOUNTER 2017-07-10 11:35 | Day surgery (SDC) | payer MEDICARE, MEDICAID ==
[~2017-07-10 11:35] MED LIST changes: -Famotidine IV* 10 MG/ML 2 ML (20 mg) IV ONE; -HYDROmorphone* 1 MG/ML 1 ML CARPUJECT IV PRN; -PROCHLORPERAZINE INJ 5 MG/ML 2 ML VIAL IV PRN; -fentaNYL* 50 MCG/ML 2 ML VIAL (100 MCG VIAL) IV PRN
[2017-07-10] MEDS ORDERED: ceFAZolin 2 GM PREMIX (*) 2 GM/50 ML BAG IVPB ONE (11:46)
[2017-07-10] MEDS ORDERED: Buffered Lidocaine 0.9% SYRIN* 5 ML/SYR SYRINGE ONE (11:46)
[2017-07-10] MEDS ORDERED: fentaNYL* 50 MCG/ML 2 ML VIAL (100 MCG VIAL) ONE (12:21)
[2017-07-10] MEDS ORDERED: Lidocaine 2% PF * 5 ML VIAL ONE (12:22)
[2017-07-10] MEDS ORDERED: Propofol* 10 MG/ML 20 ML BTL IV PUSH ONE (12:22)
[2017-07-10] MEDS ORDERED: DiMENhydriNATE IV* 50 MG/ML VIAL IV PUSH PRN (13:00)
[2017-07-10] MEDS ORDERED: fentaNYL* 50 MCG/ML 2 ML VIAL (100 MCG VIAL) IV PRN (13:00)
[2017-07-10] MEDS ORDERED: Ketorolac INJ* 30 MG/ML 1 ML VIAL IV PRN (13:00)
[2017-07-10] MEDS ORDERED: Succinylcholine* 20 MG/ML 10 ML VIAL ONE (13:01)
[2017-07-10] MEDS ORDERED: Ibuprofen TAB* 600 MG PO PRN (13:26)
[2017-07-10] MEDS ORDERED: Ketorolac INJ* 30 MG/ML 1 ML VIAL ONE (13:39)
[2017-07-10] MEDS ORDERED: DiMENhydriNATE IV* 50 MG/ML VIAL ONE (13:52)
[2017-07-10 15:01] VITALS: BP 151/75
--- NOTE | 2017-07-11 04:05 | OP ---
DATE OF OPERATION: 07/10/17 [facility] DATE OF : 52 SURGEON: Dr. Wadsworth. ANESTHESIOLOGIST: Dr. Forrest. ANESTHESIA: General anesthesia. PRE-OP DIAGNOSES: Postmenopausal bleeding, thickened endometrium. POST-OP DIAGNOSES: Postmenopausal bleeding, thickened endometrium. OPERATIVE PROCEDURE: Dilation hysteroscopy MyoSure. ESTIMATED BLOOD LOSS: Less than 20 cc. SPECIMENS: 1. Endometrial curettings. 2. Portion of submucous fibroid. FLUIDS: Per Anesthesia. FINDINGS: Small midline uterus, the cervix prolapses to the introitus with complete relaxation. No adnexal masses were palpated. Uterus sounds to 10. There was a submucous myoma along the posterior uterine wall measured approximately 2 to 3 cm. There were 2 polyps; one arose at the fundus and continued down to the internal os. The other was smaller, these originated from the posterior uterine wall. COMPLICATIONS: None. COUNTS: Sponge, lap and needle count were correct x2. CONDITION: The patient tolerated the procedure well and was brought to the recovery room awake and in stable condition. DESCRIPTION OF PROCEDURE: The patient was brought to the operating room. When general anesthesia was found to be adequate, the patient was prepped and draped in the usual sterile fashion. Exam under anesthesia was performed. Weighted speculum was placed in the vagina and the anterior lip of the cervix was grasped with a single-tooth tenaculum. The cervix was gently and easily dilated with the graduated Vieira dilators. The hysteroscope was introduced with the above findings noted. The MyoSure was then introduced. The first polyp was removed. The submucous myoma was removed and finally the last polyp was removed. After the MyoSure, the endometrium appeared atrophic and there were no further polyps or fibroids seen. The single-tooth tenaculum was removed from the cervix. Excellent hemostasis was noted. All instruments were removed from the vagina. The patient tolerated the procedure well and was brought to recovery room awake and in stable condition. Throughout the procedure, the patient had Yevgeniy stirrups and sequential compression devices. [id number]/[facility] #: [id number] [facility]
== END 2017-07-10 15:01 | disposition home or self-care (01) ==
LOC: OR 11:35
PROVIDERS: ATTEND Obstetrics & Gynecology
DX: D25.0 Submucous leiomyoma of uterus (principal); N85.8 Other specified noninflammatory disorders of uterus; N84.0 Polyp of corpus uteri; N95.0 Postmenopausal bleeding; R93.8 Abnormal findings on diagnostic imaging of other specified body structures; N81.2 Incomplete uterovaginal prolapse; E66.9 Obesity, unspecified; I48.91 Unspecified atrial fibrillation; K21.9 Gastro-esophageal reflux disease without esophagitis; Z87.891 Personal history of nicotine dependence; Z68.39 Body mass index [BMI] 39.0-39.9, adult; Z88.5 Allergy status to narcotic agent; E03.9 Hypothyroidism, unspecified
CPT/HCPCS: 88305; J0330; J0690; J1240; J1885; J2704; J3010

== ENCOUNTER 2018-06-05 03:54 | Emergency (ER) | payer MEDICARE, MEDICAID ==
[2018-06-05] MEDS ORDERED: Aspirin 81 mg CHEW TAB* 81 MG TAB.CHEW PO ONE (04:12)
[2018-06-05] MEDS ORDERED: NS 0.9% 1000 ML* 1,000 ML IV ONE (04:12)
[2018-06-05] MEDS ORDERED: Diltiazem IV* 5 MG/ML 5 ML VIAL (for loading dose/IV Push) (25 MG) IV SLOW PU ONE (04:14)
[2018-06-05] MEDS ORDERED: Ondansetron INJ* 2 MG/ML VIAL IV ONE (04:14)
--- NOTE | 2018-06-05 04:18 | ED ---
Palpitations / Dysrhythmia - HPI Summary HPI Summary: This patient is a 68 year old F BIBA to [facility] with a chief complaint of heart palpitations since 02:00. The patient reports that she typically experiences heart palpitations for a short duration every day, however tonight her palpitations lasted much longer than usual and would not resolve. The patient rates the pain 4/10 in severity. Symptoms aggravated by nothing. Symptoms alleviated by nothing. Patient reports chest heaviness than began on the left side but notes that it is now in the middle. Patient also reports nausea, difficulty breathing with exertion, and sudden urge to defecate. Pt has hx of heart palpitations. - History of Current Complaint Time Seen by Provider: 06/05/18 04:05 Hx Obtained From: Patient Onset/Duration: Sudden Onset, Lasting Hours, Still Present Severity Initially: Mild Severity Currently: Mild Character: Irregular Aggravating: Nothing Alleviating: Nothing Associated Signs & Symptoms: Chest Pain - chest heaviness, Shortness of Breath - with exertion, Nausea - Allergy/Home Medications Allergies/Adverse Reactions: Allergies Allergy/AdvReac Type Severity Reaction Status Date / Time morphine Allergy Intermediate Hallucinati Verified 10/20/17 13:33 ons oxycodone Allergy Intermediate See Comment Verified 10/20/17 13:33 Home Medications: Home Medications raNITIdine HCl [Zantac] 150 mg PO BID 06/05/18 [History Confirmed 06/05/18] PMH/Surg Hx/FS Hx/Imm Hx Endocrine/Hematology History: Reports: Hx Anemia, Other Endocrine/Hematological Disorders - left arm pit lymphnodes taken out, from melanoma Denies: Hx Anticoagulant Therapy, Hx Blood Disorders, Hx Blood Transfusions, Hx Bone Marrow Disease, Hx Diabetes, Hx Systemic Lupus Erythematosus, Hx Sickle Cell Disease, Hx Thyroid Disease, Hx Unexplained Bleeding Cardiovascular History: Reports: Hx Hypotension, Hx Hypertension, Hx Syncope Denies: Hx Aneurysm, Hx Angina, Hx Angioplasty, Hx Auto Implanted Cardiovert Defib, Hx Cardiac Arrest, Hx Cardiomegaly, Hx Congenital Heart Disease, Hx Congestive Heart Failure, Hx Coronary Artery Disease, Hx Deep Vein Thrombosis, Hx Hypercholesterolemia, Hx Myocardial Infarction, Hx Pacemaker/ICD, Hx Peripheral Vascular Disease, Hx Rheumatic Fever, Hx Valvular Heart Disease, Other Cardiovascular Problems/Disorders Respiratory History: Reports: Hx Asthma - as a child, none now, Hx Seasonal Allergies Denies: Hx Chronic Bronchitis, Hx Chronic Obstructive Pulmonary Disease (COPD ), Hx Cystic Fibrosis, Hx Lung Cancer, Hx Pleural Effusion, Hx Pneumonia, Hx Pulmonary Edema, Hx Pulmonary Embolism, Hx Sleep Apnea, Other Respiratory Problems/Disorders GI History: Reports: Other GI Disorders - GERD Denies: Hx Cirrhosis, Hx Crohn's Disease, Hx Diverticulosis, Hx Gall Bladder Disease, Hx Gastroesophageal Reflux Disease, Hx Gastrointestinal Bleed, Hx Hiatal Hernia, Hx Irritable Bowel, Hx Jaundice, Hx Obstructive Bowel, Hx Ileostomy, Hx Pyloric Stenosis, Hx Ulcer History: Denies: Hx Acute Renal Failure, Hx Benign Prostatic Hyperplasia, Hx Chronic Renal Failure, Hx Dialysis, Hx Kidney Infection, Hx Kidney Stones, Other Problems/Disorders Musculoskeletal History: Reports: Hx Arthritis Denies: Hx Back Problems, Hx Bursitis, Hx Congenital Bone Abnormalities, Hx Fibromyalgia, Hx Gout, Hx Orthopedic Injury, Hx Osteoporosis, Hx Scoliosis, Hx Tendonitis, Other Musculoskeletal History Sensory History: Reports: Hx Contacts or Glasses - wears them at all times, Hx Vision Problem Denies: Hx Cataracts, Hx Eye Injury, Hx Eye Prosthesis, Hx Glaucoma, Hx Macular Degeneration, Hx Deafness, Hx Hearing Aid, Hx Hearing Problem, Other Sensory Impairments Opthamlomology History: Reports: Hx Contacts or Glasses - wears them at all times, Hx Vision Problem Denies: Hx Cataracts, Hx Eye Injury, Hx Eye Prosthesis, Hx Glaucoma, Hx Macular Degeneration, Other Sensory Impairments Neurological History: Reports: Hx Headaches Comment Only: Other Neuro Impairments/Disorders - PAIN CLINIC PT Psychiatric History: Reports: Hx Anxiety, Hx Depression, Hx Panic Disorder, Hx Substance Abuse Denies: Hx Eating Disorder, Hx Inpatient Treatment, Hx Suicide Attempt - Cancer History Cancer Type, Location and Year: melanoma to left shoulder removed in 1997 Hx Chemotherapy: No Hx Radiation Therapy: No - Surgical History Surgery Procedure, Year, and Place: melanoma removal 1997, tonsillectomy and appendectomy as a child, lumpectomy right side. ankle fx, 4 births, left shoulder, right arm. Hx Anesthesia Reactions: No Infectious Disease History: Denies: Hx Clostridium Difficile, Hx Hepatitis, Hx Human Immunodeficiency Virus (HIV), Hx Shingles, Hx Tuberculosis - Family History Known Family History: Negative: Seizure Disorder - Social History Alcohol Use: None Substance Use Type: Reports: None Substance Use Comment - Amount & Last Used: in the past Hx Tobacco Use: No Smoking Status (MU): Former Smoker Amount Used/How Often: smoked for 25 years Have You Smoked in the Last Year: No Review of Systems Negative: Fever Positive: Palpitations, Chest Pain - chest discomfort, chest heaviness Positive: Shortness Of Breath - with exertion Positive: Nausea Negative: Rash All Other Systems Reviewed And Are Negative: Yes Physical Exam - Summary Physical Exam Summary: VITAL SIGNS: Reviewed. GENERAL: Patient is a well-developed and nourished FEMALE who is lying comfortable in the stretcher. Patient is not in any acute respiratory distress. HEAD AND FACE: No signs of trauma. No ecchymosis, hematomas or skull depressions. No sinus tenderness. EYES: PERRLA, EOMI x 2, No injected conjunctiva, no nystagmus. EARS: Hearing grossly intact. Ear canals and tympanic membranes are within normal limits. MOUTH: Oropharynx within normal limits. NECK: Supple, trachea is midline, no adenopathy, no JVD, no carotid bruit, no c- spine tenderness, neck with full ROM. CHEST: Symmetric, no tenderness at palpation LUNGS: Clear to auscultation bilaterally. No wheezing or crackles. CVS: Irregular rate and tachycardia, S1 and S2 present, no murmurs or gallops appreciated. ABDOMEN: Soft, non-tender. No signs of distention. No rebound no guarding, and no masses palpated. Bowel sounds are normal. EXTREMITIES: FROM in all major joints, no edema, no cyanosis or clubbing. NEURO: Alert and oriented x 3. No acute neurological deficits. Speech is normal and follows commands. SKIN: Dry and warm Triage Information Reviewed: Yes Vital Signs Reviewed: Yes Diagnostics - Laboratory Result Diagrams: 06/05/18 04:30 06/05/18 04:30 Lab Statement: Any lab studies that have been ordered have been reviewed, and results considered in the medical decision making process. - EKG 04:01 Cardiac Rate: Tachycardia - at 138 bpm EKG Rhythm: Atrial Fibrillation ST Segment: Non-Specific EKG Interpretation: AFib at 138 bpm with non-specific ST wave changes 05:13 Cardiac Rate: NL EKG Rhythm: Sinus Rhythm ST Segment: Normal Ectopy: None EKG Interpretation: sinus rhythm at 52 bpm with nml axis, nml intervals, and no ischemic change Re-Evaluation - Re-Evaluation 1st re-eval Re-Evaluation Time: 05:17 Change: Improved Comment: Pt feels better. Her HR is slowing. Course/Dx - Course Course Of Treatment: This patient is a 68 year old F reporting heart palpitations. An EKG reveals AFib at 138 bpm with non-specific ST wave changes. Test results with no significant abnormalities. In the ED course the patient was given ASA, Diltiazem, IV fluids, and Zofran. Repeat EKG reveals sinus rhythm at 52 bpm with nml axis, nml intervals, and no ischemic changes. Patient will be discharged with follow up from Dr. Ye, button sewer hand. The patient is agreeable with this plan. - Diagnoses Provider Diagnoses: Paroxysmal A-fib Discharge - Sign-Out/Discharge Documenting (check all that apply): Patient Departure - discharge home - Discharge Plan Condition: Stable Disposition: HOME Patient Education Materials: A-fib (Atrial Fibrillation) (ED) Referrals: Iva Beltran MD [Primary Care Provider] - Aurelio Ye DO [Medical Doctor] - 2 Days Additional Instructions: Follow up with Dr. Ye, button sewer hand, in 1-2 days. Return to the emergency department with any new or worsening symptoms. - Attestation Statements Document Initiated by Scribe: Yes Documenting Scribe: Digna Curry Provider For Whom Scribe is Documenting (Include Credential): Olamide Hobbs MD Scribe Attestation: Digna Mata, scribed for Olamide Hobbs MD on 06/05/18 at 0520.
[2018-06-05 04:47] LABS: ABS Basophils 0.1 10^3/ul (0-0.2); ABS Eosinophils 0.2 10^3/ul (0-0.6); ABS Lymphocytes 2.4 10^3/ul (1.0-4.8); ABS Monocytes 0.9 10^3/ul (0-0.8); ABS Neutrophils 5.6 10^3/ul (1.5-7.7); ABS Nucleated RBC 0 10^3/ul; Eosinophil % 2.4 % (0-6); Hematocrit 40 % (35-47); Hemoglobin 12.9 g/dl (12.0-16.0); Lymphocyte % 26.3 % (25-47); Mean Corpuscular HGB Conc 32 g/dl (31-36); Mean Corpuscular Hemoglobin 28 pg (27-31); Mean Corpuscular Volume 86 fL (80-97); Mean Platelet Volume 8.4 um3 (7.4-10.4); Nucleated Red Blood Cells % 0; Platelet Count 262 10^3/ul (150-450); Red Blood Count 4.63 10^6/ul (4.00-5.40); Red Cell Distribution Width 16 % (10.5-15); White Blood Count 9.3 10^3/ul (3.5-10.8)
[2018-06-05 04:52] LABS: INR 0.83 (0.77-1.02)
[2018-06-05 04:57] LABS: EGFR Non-African American 68.6 (>60)
[2018-06-05 05:37] VITALS: BP 147/73
== END 2018-06-05 05:37 | disposition home or self-care (01) ==
LOC: ED 03:54
DX: I48.0 Paroxysmal atrial fibrillation (principal); R06.02 Shortness of breath; R11.0 Nausea; K21.9 Gastro-esophageal reflux disease without esophagitis; Z88.5 Allergy status to narcotic agent; Z87.891 Personal history of nicotine dependence
CPT/HCPCS: 36415; 80053; 80162; 83735; 84443; 84484; 85025; 85610; 85730; 93005; 96374; 96375; 99283; A9270-GY; J2405

== ENCOUNTER 2018-07-25 02:28 | Observation (INO) | payer MEDICARE, MEDICAID ==
[2018-07-25] MEDS ORDERED: Diltiazem IV* 5 MG/ML 5 ML VIAL (for loading dose/IV Push) (25 MG) ONE (03:03)
[2018-07-25] MEDS ORDERED: Diltiazem IV* 5 MG/ML 5 ML VIAL (for loading dose/IV Push) (25 MG) IV PUSH ONE (03:08)
--- OUTSIDE RECORDS SUMMARY | 2018-07-25 03:24 | XMS REPORT | Continuity of Care Document ---
:1950 External Reference #:[id number] Author Name Rahel Covarrubias Care Team Providers Name Role Phone Iva Beltran MD Primary Care Physician Unavailable Payers Type Date Identification Numbers Payment Provider Subscriber Policy Number: [id number] Medicare Radha Hansen PayID: [id number] [address] [place] [address] Expires: 2000 Policy Number: [id number] [place] Radha Hansen Group Name: [id number] [address] PayID: [id number] [place] [address] Expires: 2017 Policy Number: [id number] Medicare Radha Hansen PayID: [id number] [address] [place] [address] Policy Number: [id number] Medicaid Radha Hansen Group Name: 1 1 [address] PayID: [id number] [place] [address] Advance Directives Type Date Description Status Comment Other Directive 06/26/2017 Health Care Proxy Current and Verified Problems Date Description Provider Status Onset: 02/23/2013 Obesity Otilia Kuhn M.D. Active Onset: 02/23/2013 Atrial fibrillation Keisha Wild M.D. Active Onset: 02/23/2013 Gastroesophageal reflux disease Joe Contreras M.D. Active Onset: 10/18/2013 Supraventricular premature beats Keisha Wild M.D. Active Onset: 04/24/2015 Premature beats Keisha Wild M.D. Active Onset: 05/29/2015 Palpitations Keisha Wild M.D. Active Onset: 09/19/2015 Paroxysmal supraventricular Keisha Wild M.D. Active tachycardia Onset: 11/16/2015 Disturbance in sleep behavior Bruno Gutierrez M.D. Active Onset: 03/28/2017 Localized, primary osteoarthritis Coral Sales M.D. Active Onset: 03/28/2017 Acquired genu valgum Coral Sales M.D. Active Onset: 05/23/2017 Arthroplasty of knee Coral Sales M.D. Active Onset: 10/18/2013 Malaise and fatigue Keisha Wild M.D. Resolved Resolved: 09/08/2016 Onset: 09/19/2015 Jaw pain Keisha Wild M.D. 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 Pt reports she has smoked cigars on ocassion in the past. Tobacco Use Start: Unknown quit 25 yr Smoking Status Reviewed: 07/20/18 quit 25 yr ETOH Use Has consumed alcohol in the past ETOH Use Quit in 2012 Tobacco Use Start: Unknown Patient is a former Quit marijuana End: Unknown smoker . quit Cig 30 yrs ago Recreational Drug Use Formerly used Marijuana started at age 19 , regularly stopped 2009 Exercise Type/Frequency Exercises sporadically Walks every couple of weeks Allergies, Adverse Reactions, Alerts Date Description Reaction Status Severity Comments 02/23/2013 Morphine and Related Nausea and Vomiting, Active Hallucinations, dizziness 02/23/2013 Percocet Nausea and Vomiting, Active Hallucinations, dizziness 05/29/2015 Environmental Active Moderate 02/23/2013 Codeine Nausea and Vomiting, Inactive Hallucinations, dizziness Medications Medication Date Status Form Strength Qnty SIG Indications Ordering Provider Flecainide 06/18/ Active Tablets 50mg 180tab take 1 I48.0 Aurelio S. Acetate 2018 s tablet by Ephraim, DO mouth FACC twice a day Aspirin 81 Low 06/01/ Active Chewtabs 81mg 90unit take 2 a Aurelio S. Dose 2018 s day Ye, DO FACC Commode 05/05/ Active Misc 1units bedside 2016 commode Henrry, DX: MSebastián M17.11 Walker 05/05/ Active Misc 1units front 2016 wheeled zoran Sales M.D. DX: M17.11 Digox 12/26/ Active Tablets 125mcg 90tabs 1 by I49.1 Aurelio S. 2017 mouth Ye, DO friday, FACC , friday Lansoprazole 10/26/ Active Capsules 15mg 60caps take one K21.[address] angely Beltran, by mouth M.D. twice a day Lexapro / Active Tablets 10mg 30tabs Take One Iva 0000 Tablet By Ruby Mouth M.D. Every Day Ranitidine 150 03/20/ Hx Tablets 150mg 60tabs one by K21.9 Shashank Maximum 2017 - mouth CECILY Morel Strength 06/18/ twice a 2018 day as needed Diclofenac 03/20/ Hx Gel 1% 100gm apply 2 M71.22 Shashank Sodium 2017 - grams to CECILY Morel 06/18/ affected 2018 area twice daily Gabapentin 01/12/ Hx Capsules 300mg 30caps 1 tab by Coral 2017 - mouth Henrry, 02/13/ before M.D. 2018 bed Benzonatate 08/06/ Hx Capsules 100mg 30caps take one Shashank 2016 - or two CECILY Morel 06/25/ capsules 2018 every 8 hours as needed for cough. Magnesium Oxide 07/15/ Hx Capsules 400mg 90caps 1 by Hedy 2016 - mouth Cotton, 06/18/ every day M.D. 2018 Ibuprofen 07/04/ Hx Tablets 800mg 60tabs 1 tab by Coral 2016 - mouth Henrry, 06/18/ every 8 M.D. 2018 hours as needed with food Gabapentin 07/04/ Hx Capsules 100mg 30caps take one Coral 2016 - tab at Henrry, 07/29/ night M.D. 2017 before as needed Gabapentin 06/18/ Hx Capsules 300mg 30caps 1 tab by Coral 2017 - mouth Henrry, 07/04/ before M.D. 2016 bed Hydromorphone 05/11/ Hx Tablets 2mg 60tabs take Coral HCL 2016 - 08/26-1 Henrry 07/29/ tablet M.D. 2016 every 8 hours as needed Sulfamethoxazol 05/01/ Hx Tablets 800-160mg 6tabs take one Coral e/Trimethoprim 2017 - tab by MARKY Sales 06/25/ mouth M.D. 2016 twice a day for 3 days (pt finished) Sulfamethoxazol 04/30/ Hx Tablets 800-160mg 6tabs take one Coral e/Trimethoprim 2017 - tab by MARKY Sales 06/27/ mouth M.D. 2016 twice a day for 3 days (pt finished) Warfarin Sodium 04/30/ Hx Tablets 2mg 90tabs take 1-3 Coral 2017 - tabs by Henrry 06/27/ mouth at M.D. 2016 5pm nightly Docusate Sodium 04/30/ Hx Capsules 100mg 90caps take 1-3 Coral 2017 - tabs by Henrry 06/27/ mouth M.D. 2016 daily. Tramadol HCL 03/21/ Hx Tablets 50mg 30tabs 1 tablet M54.5 Hallie 2017 - three to Bang N.P. 04/29/ times 2016 daily as needed Multivitamin 12/18/ Hx Tablets 1 daily Iva With Iron 2016 - Ruby 04/29/ M.D. 2016 Oyster Shell 11/25/ Hx Tablets 500-400mg- 30tabs Take One Iva Calcium + D3 2016 - Unit Tablet By Ruby 12/17/ Mouth M.D. 2016 Twice A Day Oyster Shell 04/25/ Hx Tablets 500-400mg- 30tabs Take One Iva Calcium + D3 2015 - Unit Tablet By Ruby, 09/04/ Mouth M.D. 2016 Twice A Day Turmeric 04/25/ Hx Capsules 500mg 60caps 1 by Iva 2015 - mouth bid Ruby, 02/13/ M.D. 2018 Oyster Shell 12/11/ Hx 30unit Take One Otilia Calcium-Vit D 2016 - s Tablet By Bam, Tab 04/25/ Mouth M.D. 2016 Twice A Day Slow-Mag 09/07/ Hx Tablets 71.5-119mg 120tab take one Iva 2015 - s tablet by Ruby, 05/15/ mouth M.D. 2016 every day Cephalexin 08/22/ Hx Capsules 500mg 20caps 1 tab by L03.031 Otilia 2015 - mouth 2x Bam, 09/19/ per day M.D. 2016 Cephalexin 08/03/ Hx Tablets 250mg 30tabs 1 tab po L03.031 Otilia 2014 - 3x per Bam, 08/22/ day M.D. 2014 Amoxicillin 07/10/ Hx Tablets 500mg 14tabs 1 tab by [id number] Prudencio 2014 - mouth CECILY Forte 08/03/ twice a 2014 day times 7 days Guaifenesin ac 07/10/ Hx Syrup 100-10mg/5 180ml 1 [id number] Prudencio 2014 - ML teaspoon CECILY Forte 08/03/ by mouth 2014 every 4-6 hours as needed cough Calcium 500 +D 06/23/ Hx Tablets 500-400mg- 30tabs 1 by Otilia 2014 - Unit mouth 2x Bam, 04/25/ per day M.D. 2015 Famotidine 06/12/ Hx Tablets 20mg 30tabs 1 tab po Otilia 2014 - everyday Bam, 06/22/ as needed M.D. 2014 for GERD Levothyroxine 06/12/ Hx Tablets 25mcg 90tabs Take One K21.9 Iva Sodium 2014 - Tablet By Ruby, 06/18/ Mouth M.D. 2017 Every Morning On An Empty Stomach Digox 03/08/ Hx Tablets 250mcg 45tabs take 2 I49.1 Keisha 2013 - tabs by Torri, 12/26/ mouth M.D. 2016 daily on fri/fri/f ri and 1 tab daily on / /fri/fri Digox 10/18/ Hx Tablets 0.25mg 30tabs 1 tab PO 427.61 Keisha 2013 - q day Torri, 03/08/ M.D. 2013 Lansoprazole 06/15/ Hx Capsules 30mg 90caps 1 po qd Otilia 2012 - DR Kuhn, 09/05/ M.D. 2013 Omeprazole 06/10/ Hx Capsules 20mg 90caps 1 po qd Otilia 2012 - DR Kuhn, 10/26/ MTeresa. 2013 Levothroid 02/26/ Hx Tablets 25mcg 30tabs take 1 2012 - tablet by CECILY Forte 06/12/ mouth one 2015 time daily on an empty stomach Prevacid / Hx Capsules 30mg 90caps 1 po qd [place] - DR Bee, 06/15/ M.Radha. 2012 Claritin / Hx Capsules 10mg 30caps 1 tablet Unknown 0000 - daily prn 2012 Aspir-81 00/ Hx Tablets 81mg 1 po qd Unknown - 2016 Atenolol / Hx Tablets 25mg 90tabs 1 po qd Unknown - 2012 Loratadine / Hx Tablets 10mg 30tabs 1 po qd Unknown - 2016 Multivitamins 00/ Hx Capsules 1 by Unknown 0000 - mouth 09/04/ every day 2017 Ultimate / Hx Capsules 1 daily Unknown Probiotic 0000 - Formula 2016 Vitamin D3 / Hx Capsules 5000Unit 1 by Unknown Ultra Strength 0000 - mouth 07/29/ every day 2016 Allergy Relief / Hx Tablets 10mg 1 daily Unknown - 2016 Acetaminophen / Hx Tablets 325mg 2 tablets Unknown 0000 - by mouth 06/27/ 2016 hours as needed for pain/feve r Probiotic /00/ Hx Unknown - 2016 Probiotic /00/ Hx Capsules 1 by Unknown 0000 - mouth 03/20/ every day 2018 Nu-Mag / Hx Tablets 71.5-119mg 90tabs One By Iva 0000 - Mouth Ruby, 07/15/ Every Day M.DDonavon 2016 Vitamin B 00/ Hx Tablets 1 by Unknown Complex 0000 - mouth 06/18/ every day 2017 Medications Administered in Office Medication Date Status Form Strength Qnty SIG Indications Ordering Provider Depomedrol Administered Injection Coral 40MG Carla Sales M.D. Immunizations CPT Code Status Date Vaccine Lot # [id number] Given 09/05/2016 Tdap - Tetanus/Diptheria/Acellular Pertussis [id number] Given 09/05/2016 Pneumococcal Conjugate Vaccine 13 Valent For [id number] Intramuscular Use 36635 Given 05/30/2015 Influenza Virus Vaccine, Quadrivalent, Split, [id number] Preservative Free [id number] Refused 09/05/2016 Influenza Virus Vaccine, Quadrivalent, Split Virus , Im Use Vital Signs Date Vital Result Comment 07/20/2018 3:15pm Height 66 inches 5'6" Weight 163.00 lb w/ shoes Heart Rate 46 /min reg BP Systolic Sitting 135 mmHg LA LG cuff BP Diastolic Sitting 70 mmHg LA LG cuff Respiratory Rate 18 /min BMI (Body Mass Index) 26.3 kg/m2 06/26/2018 9:37am Height 66 inches 5'6" Weight 259.50 lb w/o shoes BP Systolic Sitting 115 mmHg Rue reg cuff BP Diastolic Sitting 80 mmHg Rue reg cuff Respiratory Rate 18 /min BMI (Body Mass Index) 41.9 kg/m2 06/18/2018 1:03pm Height 66 inches 5'6" Weight 259.00 lb Heart Rate 46 /min BP Systolic 142 mmHg BP Diastolic 67 mmHg Body Temperature 96.9 F O2 % BldC Oximetry 98 % BMI (Body Mass Index) 41.8 kg/m2 06/18/2018 9:21am Height 66 inches 5'6" Weight 258.00 lb Heart Rate 46 /min BP Systolic Sitting 140 mmHg LUEf larg cuff BP Diastolic Sitting 85 mmHg LUEf larg cuff BP Systolic Standing 135 mmHg Lue larg cuff BP Diastolic Standing 80 mmHg Lue larg cuff Respiratory Rate 18 /min BMI (Body Mass Index) 41.6 kg/m2 Ejection Fraction 60-65% 05/04/2015 ECHO 03/20/2018 1:10pm Height 66 inches 5'6" Weight 264.00 lb Heart Rate 61 /min BP Systolic 143 mmHg BP Diastolic 67 mmHg Body Temperature 97.7 F O2 % BldC Oximetry 98 % BMI (Body Mass Index) 42.6 kg/m2 02/13/2018 3:23pm Height 66 inches 5'6" Weight 262.00 lb Heart Rate 57 /min BP Systolic 130 mmHg BP Diastolic 72 mmHg Body Temperature 97.7 F O2 % BldC Oximetry 96 % BMI (Body Mass Index) 42.3 kg/m2 07/30/2017 10:19am Height 66 inches 5'6" Weight 258.00 lb BP Systolic 130 mmHg BP Diastolic 76 mmHg Body Temperature 97.5 F BMI (Body Mass Index) 41.6 kg/m2 06/27/2017 12:42pm Height 65 inches 5'5" Weight 248.00 lb with shoes Heart Rate 48 /min BP Systolic Sitting 138 mmHg Lue lrg cuff BP Diastolic Sitting 76 mmHg Lue lrg cuff BP Systolic Standing 136 mmHg Lue lrg cuff BP Diastolic Standing 78 mmHg Lue lrg cuff Respiratory Rate 15 /min BMI (Body Mass Index) 41.3 kg/m2 Ejection Fraction 60-65% 05/04/2015-echo 06/27/2017 11:04am Weight 248.75 lb Heart Rate 48 /min BP Systolic Sitting 118 mmHg BP Diastolic Sitting 72 mmHg O2 % BldC Oximetry 98 % 06/18/2017 11:00am Height 65 inches 5'5" Heart Rate 46 /min BP Systolic 115 mmHg BP Diastolic 69 mmHg Body Temperature 98.0 F 05/23/2017 1:26pm Height 65 inches 5'5" Weight 250.00 lb BP Systolic 134 mmHg BP Diastolic 64 mmHg Body Temperature 97.5 F BMI (Body Mass Index) 41.6 kg/m2 05/01/2017 9:15am Height 68 inches 5'8" Weight 250.50 lb Heart Rate 44 /min BP Systolic 132 mmHg BP Diastolic 66 mmHg Body Temperature 98.1 F O2 % BldC Oximetry 98 % BMI (Body Mass Index) 38.1 kg/m2 04/30/2017 11:27am Height 68 inches 5'8" Weight 248.00 lb Heart Rate 56 /min BP Systolic 140 mmHg BP Diastolic 80 mmHg Body Temperature 97.8 F BMI (Body Mass Index) 37.7 kg/m2 04/21/2017 1:22pm Height 66 inches 5'6" Weight 249.00 lb no shoes Heart Rate 50 /min BP Systolic Sitting 132 mmHg Lue lrg cuff BP Diastolic Sitting 84 mmHg Lue lrg cuff BP Systolic Standing 130 mmHg Lue lrg cuff BP Diastolic Standing 80 mmHg Lue lrg cuff Respiratory Rate 16 /min BMI (Body Mass Index) 40.2 kg/m2 Ejection Fraction 60-65% 05/04/2015-echo 03/28/2017 9:11am Height 66 inches 5'6" Weight 285.00 lb Heart Rate 49 /min BP Systolic 156 mmHg BP Diastolic 90 mmHg Body Temperature 97.8 F Pain Level 10 BMI (Body Mass Index) 46.0 kg/m2 03/21/2017 8:53am Weight 255.75 lb Heart Rate 46 /min BP Systolic 150 mmHg BP Diastolic 88 mmHg Body Temperature 97.1 F O2 % BldC Oximetry 97 % 02/06/2017 4:28pm Weight 255.00 lb Heart Rate 48 /min BP Systolic Sitting 142 mmHg Lue large cuff BP Diastolic Sitting 82 mmHg Lue large cuff 12/26/2016 12:55pm Height 66 inches 5'6" Weight 253.00 lb with shoes Heart Rate 46 /min BP Systolic Sitting 136 mmHg Rue lrg cuff BP Diastolic Sitting 80 mmHg Rue lrg cuff BP Systolic Standing 134 mmHg Rue lrg cuff BP Diastolic Standing 82 mmHg Rue lrg cuff Respiratory Rate 16 /min BMI (Body Mass Index) 40.8 kg/m2 Ejection Fraction 60-65% 05/04/2015-echo 12/18/2016 11:28am Height 66 inches 5'6" Weight 256.00 lb Heart Rate 54 /min 50 Manually BP Systolic 130 mmHg BP Diastolic 70 mmHg Body Temperature 97.3 F O2 % BldC Oximetry 97 % BMI (Body Mass Index) 41.3 kg/m2 09/05/2016 1:17pm Height 66 inches 5'6" Weight 258.00 lb Heart Rate 45 /min BP Systolic 120 mmHg BP Diastolic 74 mmHg Body Temperature 97.4 F O2 % BldC Oximetry 97 % BMI (Body Mass Index) 41.6 kg/m2 04/24/2016 10:44am Height 66 inches 5'6" Weight 250.00 lb Heart Rate 50 /min BP Systolic Sitting 128 mmHg BP Diastolic Sitting 80 mmHg Body Temperature 97.0 F O2 % BldC Oximetry 97 % BMI (Body Mass Index) 40.3 kg/m2 11/16/2015 11:17am Height 66 inches 5'6" Weight 248.00 lb Heart Rate 46 /min BP Systolic Sitting 139 mmHg BP Diastolic Sitting 86 mmHg Respiratory Rate 16 /min O2 % BldC Oximetry 98 % BMI (Body Mass Index) 40.0 kg/m2 Neck Circumference in inches 16 09/19/2015 11:54am Weight 248.00 lb Heart Rate 48 /min BP Systolic Sitting 138 mmHg Ra large cuff BP Diastolic Sitting 84 mmHg Ra large cuff BP Systolic Standing 132 mmHg Ra BP Diastolic Standing 80 mmHg Ra Respiratory Rate 16 /min Ejection Fraction 60-65% 05/04/15 08/22/2015 10:43am Weight 253.75 lb Heart Rate 46 /min BP Systolic Sitting 134 mmHg BP Diastolic Sitting 69 mmHg Body Temperature 97.3 F Pain Level 0 O2 % BldC Oximetry 99 % 08/03/2015 10:57am Weight 251.00 lb Heart Rate 47 /min BP Systolic Sitting 110 mmHg BP Diastolic Sitting 64 mmHg Body Temperature 97.5 F O2 % BldC Oximetry 97 % 07/10/2015 1:22pm Weight 251.00 lb Heart Rate 46 /min BP Systolic Sitting 126 mmHg BP Diastolic Sitting 78 mmHg Respiratory Rate 16 /min Body Temperature 98.1 F O2 % BldC Oximetry 97 % 05/30/2015 12:51pm Height 66 inches 5'6" Weight 251.50 lb Heart Rate 47 /min BP Systolic Sitting 120 mmHg BP Diastolic Sitting 72 mmHg Respiratory Rate 16 /min Body Temperature 97.1 F O2 % BldC Oximetry 98 % BMI (Body Mass Index) 40.6 kg/m2 05/29/2015 12:55pm Height 66.5 inches 5'6.50" Weight 250.00 lb w/o shoes Heart Rate 50 /min reg BP Systolic Sitting 120 mmHg Rue, lg cuff BP Diastolic Sitting 64 mmHg Rue, lg cuff BP Systolic Standing 124 mmHg Rue BP Diastolic Standing 66 mmHg Rue Respiratory Rate 18 /min BMI (Body Mass Index) 39.7 kg/m2 Ejection Fraction 60-65% as of 05/04/15 echo 04/24/2015 7:59am Height 66.5 inches 5'6.50" Weight 252.00 lb no shoes Heart Rate 50 /min BP Systolic Sitting 136 mmHg LA, Lg cuff BP Diastolic Sitting 84 mmHg LA, Lg cuff BP Systolic Standing 132 mmHg LA BP Diastolic Standing 84 mmHg LA Respiratory Rate 16 /min BMI (Body Mass Index) 40.1 kg/m2 04/20/2015 10:36am Height 66.5 inches 5'6.50" Weight 252.00 lb Heart Rate 54 /min BP Systolic Sitting 128 mmHg BP Diastolic Sitting 80 mmHg Body Temperature 98.7 F O2 % BldC Oximetry 96 % BMI (Body Mass Index) 40.1 kg/m2 10/18/2013 11:03am Height 66.5 inches 5'6.50" Weight 252.31 lb no shoes Heart Rate 52 /min BP Systolic Sitting 118 mmHg LA, Lg cuff BP Diastolic Sitting 76 mmHg LA, Lg cuff BP Systolic Standing 118 mmHg BP Diastolic Standing 78 mmHg Respiratory Rate 16 /min BMI (Body Mass Index) 40.1 kg/m2 09/06/2013 3:43pm Height 66 inches 5'6" Weight 255.00 lb without shoes, up 14 lbs Heart Rate 56 /min sit and reg BP Systolic Sitting 140 mmHg R arm Lg cuff BP Diastolic Sitting 80 mmHg R arm Lg cuff BP Systolic Standing 130 mmHg R arm Lg cuff BP Diastolic Standing 74 mmHg R arm Lg cuff Respiratory Rate 17 /min BMI (Body Mass Index) 41.2 kg/m2 05/11/2013 12:25pm Weight 241.00 lb Heart Rate 70 /min BP Systolic Sitting 144 mmHg BP Diastolic Sitting 80 mmHg 04/15/2013 10:57am Weight 238.00 lb Heart Rate 53 /min BP Systolic Sitting 122 mmHg BP Diastolic Sitting 80 mmHg 02/23/2013 1:32pm Height 66.25 inches 5'6.25" Weight 241.00 lb Heart Rate 60 /min BP Systolic Sitting 133 mmHg BP Diastolic Sitting 68 mmHg BMI (Body Mass Index) 38.6 kg/m2 Results Test Date Facility Test Result H/L Range Note CBC Auto Diff 06/05/2018 [facility] White Blood 9.3 10^3/uL N 3.5-10.[address] [place] [address] [phone] Red Blood Count 4.63 10^6/uL N 4.00-5.40 Hemoglobin 12.9 g/dL N 12.0-16.0 Hematocrit 40 % N 35-47 Mean Corpuscular Volume 86 fL N 80-97 Mean Corpuscular Hemoglobin 28 pg N 27-31 Mean Corpuscular HGB Conc 32 g/dL N 31-36 Red Cell Distribution Width 16 % High 10.5-15 Platelet Count 262 10^3/uL N 150-450 Mean Platelet Volume 8.4 um3 N 7.4-10.4 Abs Neutrophils 5.6 10^3/uL N 1.5-7.7 Abs Lymphocytes 2.4 10^3/uL N 1.0-4.8 Abs Monocytes 0.9 10^3/uL High 0-0.8 Abs Eosinophils 0.2 10^3/uL N 0-0.6 Abs Basophils 0.1 10^3/uL N 0-0.2 Abs Nucleated RBC 0 10^3/uL Granulocyte % 60.6 % N 38-83 Lymphocyte % 26.3 % N 25-47 Monocyte % 10.0 % High 0-7 Eosinophil % 2.4 % N 0-6 Basophil % 0.7 % N 0-2 Nucleated Red Blood Cells % 0 Inr/Protime 06/05/2018 [facility] Inr 0.83 N 0.77-1.[address] [place] [address] [phone] Laboratory test 06/05/2018 [facility] Partial 31.3 seconds N 26.0-36.[address] [place] [address] PTT [phone] Comp Metabolic 06/05/2018 [facility] Sodium 142 mmol/L N 135- [address] [place] [address] [phone] Potassium 4.5 mmol/L N 3.5-5.0 Chloride 105 mmol/L N 101-111 Co2 Carbon Dioxide 29 mmol/L N 22-32 Anion Gap 8 mmol/L N 2-11 Glucose 103 mg/dL High 70-100 Blood Urea Nitrogen 19 mg/dL N 6-24 Creatinine 0.83 mg/dL N 0.51-0.95 BUN/Creatinine Ratio 22.9 High 8-20 Calcium 9.4 mg/dL N 8.6-10.3 Total Protein 7.4 g/dL N 6.4-8.9 Albumin 4.1 g/dL N 3.2-5.2 Globulin 3.3 g/dL N 2-4 Albumin/Globulin Ratio 1.2 N 1-3 Total Bilirubin 0.30 mg/dL N 0.2-1.0 Alkaline Phosphatase 121 U/L High 34-104 Alt 33 U/L N 7-52 Ast 39 U/L N 13-39 Egfr Non- 68.6 >60 Egfr 83.0 >60 1 Laboratory test 06/05/2018 [facility] Magnesium 2.1 mg/dL N 1.9-2.[address] [place] [address] [phone] Troponin-I (TnI) 0.01 ng/mL <0.04 Digoxin 0.3 ng/ml Low 0.8-2.0 TSH (Thyroid Stim Horm) 5.84 mcIU/mL High 0.34-5.60 CBC Auto Diff 06/27/2017 [facility] White Blood 9.3 10^3/uL N 3.5-10.[address] [place] [address] [phone] Red Blood Count 4.36 10^6/uL N 4.0-5.4 Hemoglobin 12.0 g/dL N 12.0-16.0 Hematocrit 38 % N 35-47 Mean Corpuscular Volume 88 fL N 80-97 Mean Corpuscular Hemoglobin 28 pg N 27-31 Mean Corpuscular HGB Conc 31 g/dL N 31-36 Red Cell Distribution Width 15 % N 10.5-15 Platelet Count 324 10^3/uL N 150-450 Mean Platelet Volume 8 um3 N 7.4-10.4 Abs Neutrophils 5.9 10^3/uL N 1.5-7.7 Abs Lymphocytes 2.2 10^3/uL N 1.0-4.8 Abs Monocytes 0.9 10^3/uL High 0-0.8 Abs Eosinophils 0.2 10^3/uL N 0-0.6 Abs Basophils 0.1 10^3/uL N 0-0.2 Abs Nucleated RBC 0 10^3/uL N Granulocyte % 63.3 % N 38-83 Lymphocyte % 24.0 % Low 25-47 Monocyte % 9.7 % High 1-9 Eosinophil % 2.2 % N 0-6 Basophil % 0.8 % N 0-2 Nucleated Red Blood Cells % 0 N Basic Metabolic Panel 06/27/2017 [facility] Sodium 138 mmol/L N 133-[address] [place] [address] [phone] Potassium 4.9 mmol/L N 3.5-5.0 Chloride 103 mmol/L N 101-111 Co2 Carbon Dioxide 28 mmol/L N 22-32 Anion Gap 7 mmol/L N 2-11 Glucose 100 mg/dL N 70-100 Blood Urea Nitrogen 13 mg/dL N 6-24 Creatinine 0.84 mg/dL N 0.51-0.95 BUN/Creatinine Ratio 15.5 N 8-20 Calcium 9.5 mg/dL N 8.6-10.3 Egfr Non- 67.8 N >60 Egfr 87.2 N >60 2 Inr/Protime 06/02/2017 [facility] Inr 1.62 High 0.89-1.[address] [place], [place] [id number] [phone] Laboratory test 05/01/2017 [facility] TSH 1.77 N 0.34-5.[address] (Thyroid mcIU/[place] [address] Stim Horm) [phone] Thyroxine 11.47 g/mL N 6.09-12.23 T3 Free 2.80 pg/mL N 2.5-3.9 Magnesium 2.1 mg/dL N 1.9-2.7 Comp Metabolic Panel 04/29/2017 [facility] Sodium 138 mmol/L N [address] [place] [address] [phone] Potassium 4.7 mmol/L N 3.5-5.0 Chloride 100 mmol/L Low 101-111 Co2 Carbon Dioxide 34 mmol/L High 22-32 Anion Gap 4 mmol/L N 2-11 Glucose 98 mg/dL N 70-100 Blood Urea Nitrogen 18 mg/dL N 6-24 Creatinine 0.97 mg/dL High 0.51-0.95 BUN/Creatinine Ratio 18.6 N 8-20 Calcium 9.4 mg/dL N 8.6-10.3 Total Protein 7.1 g/dL N 6.4-8.9 Albumin 3.8 g/dL N 3.2-5.2 Globulin 3.3 g/dL N 2-4 Albumin/Globulin Ratio 1.2 N 1-3 Total Bilirubin 0.60 mg/dL N 0.2-1.0 Alkaline Phosphatase 90 U/L N 34-104 Alt 35 U/L N 7-52 Ast 34 U/L N 13-39 Egfr Non- 57.5 N >60 Egfr 73.9 N >60 3 Inr/Protime 04/29/2017 [facility] Inr 0.90 N 0.89-1.[address] [place] [address] [phone] Urine Culture And 04/29/2017 [facility] Urine SEE RESULT [address] [place] [address] [phone] Laboratory test 04/29/2017 [facility] Partial 29.6 N 26.0- 36.[address] [address] PTT [phone] CBC No Diff 04/29/2017 [facility] White Blood 8.5 10^3/uL N 3.5-10.[address] [place] [address] [phone] Red Blood Count 4.51 10^6/uL N 4.0-5.4 Hemoglobin 13.2 g/dL N 12.0-16.0 Hematocrit 41 % N 35-47 Mean Corpuscular Volume 90 fL N 80-97 Mean Corpuscular Hemoglobin 29 pg N 27-31 Mean Corpuscular HGB Conc 33 g/dL N 31-36 Red Cell Distribution Width 15 % N 10.5-15 Platelet Count 293 10^3/uL N 150-450 Mean Platelet Volume 8 um3 N 7.4-10.4 Urinalysis Profile 04/29/2017 [facility] Urine Color Yellow [place] [address] [place] [address] [phone] Urine Appearance Clear N Urine Specific [place] 1.018 N 1.010-1.030 Urine pH 6.0 N 5-9 Urine Urobilinogen Negative N Negative Urine Ketones Negative N Negative Urine Protein Negative N Negative Urine Leukocytes Trace Abnormal Negative Urine Blood Negative N Negative Urine Nitrite Negative N Negative Urine Bilirubin Negative N Negative Urine Glucose Negative N Negative Urine White Blood Cell Trace(0-5/hpf) N Absent Urine Red Blood Cell Trace(0-2/hpf) N Absent Urine Bacteria 1+ Abnormal Absent Urine Squamous Epithelial Cell Present Abnormal Absent Type & Screen 04/29/2017 [facility] Patient Blood Type O Positive N [address] [place] [address] [phone] Antibody Screen NEGATIVE N CBC Auto Diff 03/27/2017 [facility] White Blood 7.1 10^3/uL N 3.5-10.[address] [place] [address] [phone] Red Blood Count 4.37 10^6/uL N 4.0-5.4 Hemoglobin 12.9 g/dL N 12.0-16.0 Hematocrit 39 % N 35-47 Mean Corpuscular Volume 90 fL N 80-97 Mean Corpuscular Hemoglobin 30 pg N 27-31 Mean Corpuscular HGB Conc 33 g/dL N 31-36 Red Cell Distribution Width 15 % N 10.5-15 Platelet Count 244 10^3/uL N 150-450 Mean Platelet Volume 9 um3 N 7.4-10.4 Abs Neutrophils 4.2 10^3/uL N 1.5-7.7 Abs Lymphocytes 2.0 10^3/uL N 1.0-4.8 Abs Monocytes 0.6 10^3/uL N 0-0.8 Abs Eosinophils 0.2 10^3/uL N 0-0.6 Abs Basophils 0 10^3/uL N 0-0.2 Abs Nucleated RBC 0 10^3/uL N Granulocyte % 59.9 % N 38-83 Lymphocyte % 28.2 % N 25-47 Monocyte % 8.9 % N 1-9 Eosinophil % 2.3 % N 0-6 Basophil % 0.7 % N 0-2 Nucleated Red Blood Cells % 0 N Laboratory test 03/27/2017 [facility] Ferritin 93.3 ng/mL N 11 -307 finding [address] [place] [address] [phone] Laboratory test 10/31/2016 [facility] Magnesium 1.9 mg/dL N 1.9-2.7 finding [address] [place] [address] [phone] Digoxin 0.9 ng/ml N 0.8-2.0 Laboratory test 09/05/2016 [facility] Cytology SEE RESULT BELOW 5 finding [address] [place] [address] [phone] HPV Rna Ww/Reflex Genotype Negative N Negative 6 Laboratory test 05/02/2016 [facility] Magnesium 1.9 mg/dL N 1.9-2.7 finding [address] [place] [address] [phone] Basic Metabolic 05/02/2016 [facility] Sodium 137 mmol/L N 133- 145 Panel [address] [place] [address] [phone] Potassium 4.4 mmol/L N 3.5-5.0 Chloride 102 mmol/L N 101-111 Co2 Carbon Dioxide 28 mmol/L N 22-32 Anion Gap 7 mmol/L N 2-11 Glucose 106 mg/dL High 70-100 Blood Urea Nitrogen 12 mg/dL N 6-24 Creatinine 0.81 mg/dL N 0.51-0.95 BUN/Creatinine Ratio 14.8 N 8-20 Calcium 9.1 mg/dL N 8.6-10.3 Egfr Non- 71.0 N >60 Egfr 91.3 N >60 7 Laboratory test 05/02/2016 [facility] Free T4 (Free 0.78 ng/dL N 0.61-1.12 finding [address] [facility] [place]) [place] [address] [phone] T3 Free 4.10 pg/mL High 2.5-3.9 TSH (Thyroid Stim Horm) 2.43 mcIU/mL N 0.34-5.60 Vitamin B12 474 pg/mL N 180-914 8 Thyroperoxidase AB 3.90 IU/mL N <9 Vitamin D Total 25(Oh) 25.7 ng/mL Low 30-50 Laboratory test 12/28/2015 [facility] Digoxin 2.2 ng/ml High 0.8-2.0 finding [address] [place] [address] [phone] CKMB 12/28/2015 [facility] CKMB ng/mL 1.7 ng/mL N 0.6-6.3 [address] [place] [address] [phone] Laboratory test 12/28/2015 [facility] Magnesium 1.8 mg/dL Low 1.9-2.7 finding [address] [place] [address] [phone] Lipase 21 U/L N 11.0-82.0 Creatine Kinase(CK) 65 U/L N 10-223 C Reactive Protein 28.13 mg/L High < 5.00 9 TSH (Thyroid Stim Horm) 3.09 ?IU/mL N 0.34-5.60 Comp Metabolic Panel 12/28/2015 [facility] Sodium 137 mmol/L N 133-145 [address] [place] [address] [phone] Potassium 4.0 mmol/L N 3.5-5.0 Chloride 100 mmol/L Low 101-111 Co2 Carbon Dioxide 29 mmol/L N 22-32 Anion Gap 8 mmol/L N 2-11 Glucose 115 mg/dL High 70-100 Blood Urea Nitrogen 11 mg/dL N 6-24 Creatinine 0.90 mg/dL N 0.51-0.95 BUN/Creatinine Ratio 12.2 N 8-20 Calcium 8.9 mg/dL N 8.6-10.3 Total Protein 7.0 g/dL N 6.4-8.9 Albumin 3.9 g/dL N 3.2-5.2 Globulin 3.1 g/dL N 2-4 Albumin/Globulin Ratio 1.3 N 1-3 Total Bilirubin 0.50 mg/dL N 0.2-1.0 Alkaline Phosphatase 86 U/L N 34-104 Alt 37 U/L N 7-52 Ast 42 U/L High 13-39 Egfr Non- 63.0 N >60 Egfr 81.1 N >60 10 Laboratory test 12/28/2015 [facility] B-Type Natriuretic 75 pg/ mL N [address] [place] [address] [phone] Troponin-I (TnI) 0.01 ng/mL N <0.03 12 CBC Auto Diff 12/28/2015 [facility] White Blood 10.7 10^3/uL N 3.5-10.[address] [place] [address] [phone] Red Blood Count 4.51 10^6/uL N 4.0-5.4 Hemoglobin 13.4 g/dL N 12.0-16.0 Hematocrit 41 % N 35-47 Mean Corpuscular Volume 91 fL N 80-97 Mean Corpuscular Hemoglobin 30 pg N 27-31 Mean Corpuscular HGB Conc 33 g/dL N 31-36 Red Cell Distribution Width 14 % N 10.5-15 Platelet Count 266 10^3/uL N 150-450 Mean Platelet Volume 9 um3 N 7.4-10.4 Abs Neutrophils 6.6 10^3/uL N 1.5-7.7 Abs Lymphocytes 3.0 10^3/uL N 1.0-4.8 Abs Monocytes 0.8 10^3/uL N 0-0.8 Abs Eosinophils 0.2 10^3/uL N 0-0.6 Abs Basophils 0.1 10^3/uL N 0-0.2 Abs Nucleated RBC 0.01 10^3/uL N Granulocyte % 61.5 % N 38-83 Lymphocyte % 28.1 % N 25-47 Monocyte % 7.8 % N 1-9 Eosinophil % 2.0 % N 0-6 Basophil % 0.6 % N 0-2 Nucleated Red Blood Cells % 0.1 N Laboratory test 12/28/2015 [facility] Partial 31.0 seconds N 26.0-36.[address] [place] [address] PTT [phone] D Dimer Quantitative < 200 ng/mL N Less Than 230 13 Inr/Protime 12/28/2015 [facility] Inr 0.97 N 0.89-1[place] [place] [address] [phone] Laboratory test 12/28/2015 [facility] Troponin-I 0.03 High < 0.[address] (TnI) ng/[place] [address] [phone] Laboratory test 12/28/2015 [facility] Troponin-I 0.23 High < 0.03 15, [address] (TnI) ng/[place] [address] [phone] Laboratory test 09/19/2015 [facility] Digoxin 1.2 N 0.8-2.[address] ng/[place] [address] [phone] Troponin-I (TnI) 0.00 ng/mL N <0.03 17 Creatine Kinase(CK) 68 U/L N 10-223 Laboratory test 09/05/2015 [facility] TSH (Thyroid 3.40 ?IU/mL N 0.34-5.[address] Stim Horm) [place] [address] [phone] Free T4 (Free Thyroxine) 0.86 ng/mL N 0.61-1.12 Magnesium 1.8 mg/dL Low 1.9-2.7 Laboratory test 06/21/2015 [facility] Digoxin 1.2 ng/ml N 0.8- 2.[address] [place] [address] [phone] Laboratory test 05/30/2015 [facility] Hemoglobin A1c 5.8 5-7 finding Laboratory test 05/30/2015 [facility] Cytology SEE RESULT [address] [place] [address] [phone] HPV Rna Ww/Reflex Genotype Negative N Negative 19 Lipid Profile (Trig/Chol/HDL) 04/27/2015 Triglycerides 152 mg/dL N 20 Cholesterol 165 mg/dL N 21 HDL Cholesterol 43.0 mg/dL N 22 LDL Cholesterol 92 mg/dL N 23 Laboratory test 04/27/2015 TSH (Thyroid 2.56 ?IU/mL N 0.34-5.60 24 finding Stim Horm) Laboratory test 04/27/2015 Glucose 104 mg/dL High 70-100 25 finding Laboratory test 11/26/2013 Digoxin 0.7 ng/ml Low 0.8-2.0 finding CBC Auto Diff 10/15/2013 [facility] White Blood 7.5 10^3/uL 4.8-10.[address] [place] [address] [phone] Red Blood Count 4.26 10^6/uL 4.0-5.4 Hemoglobin 12.1 g/dL 12.0-16.0 Hematocrit 37 % 35-47 Mean Corpuscular Volume 87 fL 80-97 Mean Corpuscular Hemoglobin 28 pg 27-31 Mean Corpuscular HGB Conc 33 g/dL 31-36 Red Cell Distribution Width 15 % 10.5-15 Platelet Count 248 10^3/uL 150-450 Mean Platelet Volume 9 um3 7.4-10.4 Abs Neutrophils 4.2 10^3/uL 1.5-7.7 Abs Lymphocytes 2.1 10^3/uL 1.0-4.8 Abs Monocytes 0.7 10^3/uL 0-0.8 Abs Eosinophils 0.4 10^3/uL 0-0.6 Abs Basophils 0.1 10^3/uL 0-0.2 Abs Nucleated RBC 0.01 10^3/uL Granulocyte % 55.8 % 38-83 Lymphocyte % 28.2 % 25-47 Monocyte % 9.9 % High 1-9 Eosinophil % 5.0 % 0-6 Basophil % 1.1 % 0-2 Nucleated Red Blood Cells % 0.1 Inr/Protime 10/15/2013 [facility] Inr 0.90 0.85-1.[address] [place] [address] [phone] Laboratory test 10/15/2013 [facility] Troponin I 0.01 ng/mL < 0.03 [address] [place] [address] [phone] TSH (Thyroid Stimulating Horm) 3.21 IU/mL 0.34-5.60 CKMB 10/15/2013 [facility] CKMB ng/mL 1.4 ng/mL 0.6-6.[address] [place] [address] [phone] Laboratory test 10/15/2013 [facility] Magnesium 1.9 mg/dL 1.9 -2.[address] [place] [address] [phone] Comp Metabolic 10/15/2013 [facility] Sodium 139 mmol/L 133- [address] [place] [address] [phone] Potassium 4.1 mmol/L 3.7-5.6 Chloride 103 mmol/L 101-111 Co2 Carbon Dioxide 30 mmol/L 22-32 Anion Gap 6 mmol/L 2-11 Glucose 96 mg/dL 70-100 Blood Urea Nitrogen 16 mg/dL 6-24 Creatinine 1.00 mg/dL High 0.51-0.95 BUN/Creatinine Ratio 16.0 8-20 Calcium 9.2 mg/dL 8.6-10.3 Total Protein 6.9 g/dL 6.4-8.9 Albumin 3.8 g/dL 3.2-5.2 Globulin 3.1 g/dL 2-4 Albumin/Globulin Ratio 1.2 1-3 Total Bilirubin 0.20 mg/dL 0.2-1.0 Alkaline Phosphatase 93 U/L 34-104 Alt 29 U/L 7-52 Ast 34 U/L 13-39 Egfr Non- 56.2 >60 Egfr 72.3 >60 27 Laboratory test 10/15/2013 [facility] Activated 31.1 24.0- 36.[address] [place] [address] Time [phone] Laboratory test 04/15/2013 [facility] TSH (Thyroid 1.66 miu/mL 0.34-5.[address] [place] [address] Horm) [phone] Laboratory test 04/15/2013 [facility] Cytology RUN DATE: [address] 04/16/ <[place] [address] NOTE> [phone] Laboratory test 02/20/2013 [facility] Phosphorus 3.9 mg/dL 2.4-4.7 finding [address] [place] [address] [phone] Magnesium 2.1 mg/dL 1.7-2.6 TSH (Thyroid Stimulating Horm) 3.02 miu/mL 0.34-5.60 B Type Natriuretic Peptide 181.0 pg/mL High 0-100 Comp Metabolic Panel 02/20/2013 [facility] Sodium 139 mmol/L 133-145 [address] [place] [address] [phone] Potassium 4.6 mmol/L 3.5-5.0 Chloride 104 mmol/L 101-111 Co2 Carbon Dioxide 24.0 mmol/L 22-32 Anion Gap 11.0 mmol/L 2-11 Glucose 100 mg/dL 70-100 Blood Urea Nitrogen 12 mg/dL 6-24 Creatinine 0.80 mg/dL 0.50-1.40 BUN/Creatinine Ratio 15.0 8-20 Calcium 9.6 mg/dL 8.1-9.9 Total Protein 7.5 g/dL 6.2-8.1 Albumin 3.9 g/dL 3.2-5.2 Globulin 3.6 g/dL 2-4 Albumin/Globulin Ratio 1.1 1-3 Total Bilirubin 0.6 mg/dL 0.4-1.5 Alkaline Phosphatase 90 U/L 30-110 Alt 32 U/L 14-54 Ast 41 U/L 12-42 Egfr Non- 72.7 >60 Egfr 93.5 >60 29 Laboratory test 02/20/2013 [facility] Troponin I 0.01 ng/mL 0 -0.06 30 finding [address] [place] [address] [phone] CBC Auto Diff 02/20/2013 [facility] White Blood 9.8 4.8-10.8 [address] [facility] Count 10^3/[place] [address] [phone] Red Blood Count 4.48 10^6/uL 4.0-5.4 Hemoglobin 13.0 g/dL 12.0-16.0 Hematocrit 40 % 35-47 Mean Corpuscular Volume 90 fL 80-97 Mean Corpuscular Hemoglobin 29 pg 27-31 Mean Corpuscular HGB Conc 32 g/dL 31-36 Red Cell Distribution Width 15 % 10.5-15 Platelet Count 241 10^3/uL 150-450 Mean Platelet Volume 9 um3 7.4-10.4 Abs Neutrophils 7.0 10^3/uL 1.5-7.7 Abs Lymphocytes 1.9 10^3/uL 1.0-4.8 Abs Monocytes 0.8 10^3/uL 0-0.8 Abs Eosinophils 0.2 10^3/uL 0-0.6 Abs Basophils 0.1 10^3/uL 0-0.2 Abs Nucleated RBC 0 10^3/uL Granulocyte % 70.6 % 38-83 Lymphocyte % 18.9 % Low 25-47 Monocyte % 7.7 % 1-9 Eosinophil % 2.0 % 0-6 Basophil % 0.8 % 0-2 Nucleated Red Blood Cells % 0 Inr/Protime 02/20/2013 [facility] Inr 0.89 0.87-0.97 [address] [place] [address] [phone] Laboratory test 02/20/2013 [facility] Activated 31.4 22.18- 37.[address] [place] [address] Thrombo Time [phone] Lactic Acid 1.2 mmol/L 0.5-1.6 Creatine Kinase 99 U/L 0-200 CKMB 02/20/2013 [facility] CKMB ng/mL 1.4 ng/mL 0.3-4.0 31 [address] [place] [address] [phone] CKMB ng/mL 1.4 ng/mL 0.3-4.0 32 1 Because ethnic data is not always readily available, this report includes an eGFR for both -Americans and non- Americans. The National Kidney Disease Education Program (NKDEP) does not endorse the use of the MDRD equation for patients that are not between the ages of 18 and 70, are , have extremes of body size, muscle mass, or nutritional status, or are non- or non-. According to the National Kidney Foundation, irrespective of diagnosis, the stage of the disease is based on the level of kidney function: Stage Description GFR(mL/min/1.73 m(2)) 1 Kidney damage with normal or decreased GFR 90 2 Kidney damage with mild decrease in GFR 60-89 3 Moderate decrease in GFR 30-59 4 Severe decrease in GFR 15-29 5 Kidney failure <15 (or dialysis) 2 Because ethnic data is not always readily available, this report includes an eGFR for both -Americans and non- Americans. The National Kidney Disease Education Program (NKDEP) does not endorse the use of the MDRD equation for patients that are not between the ages of 18 and 70, are , have extremes of body size, muscle mass, or nutritional status, or are non- or non-. According to the National Kidney Foundation, irrespective of diagnosis, the stage of the disease is based on the level of kidney function: Stage Description GFR(mL/min/1.73 m(2)) 1 Kidney damage with normal or decreased GFR 90 2 Kidney damage with mild decrease in GFR 60-89 3 Moderate decrease in GFR 30-59 4 Severe decrease in GFR 15-29 5 Kidney failure <15 (or dialysis) 3 Because ethnic data is not always readily available, this report includes an eGFR for both -Americans and non- Americans. The National Kidney Disease Education Program (NKDEP) does not endorse the use of the MDRD equation for patients that are not between the ages of 18 and 70, are , have extremes of body size, muscle mass, or nutritional status, or are non- or non-. According to the National Kidney Foundation, irrespective of diagnosis, the stage of the disease is based on the level of kidney function: Stage Description GFR(mL/min/1.73 m(2)) 1 Kidney damage with normal or decreased GFR 90 2 Kidney damage with mild decrease in GFR 60-89 3 Moderate decrease in GFR 30-59 4 Severe decrease in GFR 15-29 5 Kidney failure <15 (or dialysis) 4 SEE RESULT BELOW Name: RADHA HANSEN : [address]: Coral Sales MD Acct: [id number] Unit: [id number] AGE: 67 Location: LAB Re04/29/17 SEX: F Status: REG REF SPEC: [id number] GENARO: 04/29/17-[address]: Coral Sales MD REQ: [id number] RECD: 04/29/17-1311 STATUS: MADELIN FERREIRA DR: Iva Beltran MD _ SOURCE: URINE SPDESC: ORDERED: Urine Culture QUERIES: Urine Source: Clean Catch Procedure Result Reported Site Urine Culture Final 04/30/17- 1149 ML Organism 1 STREP GROUP B Shelly Count 10-25,000 (Moderate) CFU/ML Susceptibility testing of penicillins and other B-lactams approved by FDA for treatment of Streptococcus pyogenes (Group A Strep) and Streptococcus agalactiae (Group B Strep) is not necessary for clinical purposes and need not be done routinely, since as with vancomycin, resistant strains have not been recognized. (CLSI O636-K57;p.66) Positive isolates will be saved for one week. Please call the Microbiology Laboratory if further susceptibility testing is needed. * ML - MAIN LAB ([facility]) . END OF REPORT * ML=Testing performed at Main Lab DEPARTMENT OF PATHOLOGY, [address] [place] [address] Mushtaq Mota M.D. Director [facility] # [id number] 5 SEE RESULT BELOW Name: RADHA HANSEN Fernando : [address]: Iva Beltran MD Acct: [id number] Unit: [id number] AGE: 66 Location: [facility] Re09/05/16 SEX: F Status: REG REF SPEC: [id number] GENARO: 09/05/16-[address]: Iva Beltran MD REQ: [id number] RECD: 09/05/16 STATUS: SOUT _ ORDERED: IMAGE ANALYSIS, HPV/Thin Prep, HPV 16/18 GENE COMMENTS: [id number] FINAL DIAGNOSIS Negative for Intraepithelial lesion or Malignancy A. Ectocervical/Endocervical Specimen Adequacy: Satisfactory of evaluation Transformation zone component identified Patient Information: HPV: High risk HPV RNA testing regardless of pap results. HPV 16/18 Genotype Reflex Actual Specimen Date: 09/05/16 LMP If Unknown: 50's. Post Menopausal?: Y Date Time Test Result Flag (u) Normal Range 09/05/16 142 HPV RNA RFLX GE Negative Negative The high-risk HPV types detected by the assay include: 16, 18, 31, 33, 35, 39, 45, 51, 52, 56, 58, 59, 66, and 68. Signed (signature on file) MEGHAN Ash (ASCP) 09/06 1422 This Pap test was evaluated with the assistance of the [employer] Test Imaging System. Due to cytologic findings at the dry end operator microscope, comprehensive manual rescreening by a Support Worker may be required. The Pap Smear is a screening test designed to aid in the detection of premalignant and malignant conditions of the uterine cervix. It is not a diagnostic procedure and should not be used as the sole means of detecting cervical cancer. Both false- positive and false- negative reports do occur. Depending on your risk status, a Pap smear should be obtained and evaluated every 1-3 years. END OF REPORT * ML=Testing performed at Main Lab DEPARTMENT OF PATHOLOGY, [address] [place] [address] Mushtaq Mota M.D. Director [facility] # [id number] 6 The high-risk HPV types detected by the assay include: 16, 18, 31, 33, 35, 39, 45, 51, 52, 56, 58, 59, 66, and 68. 7 Because ethnic data is not always readily available, this report includes an eGFR for both -Americans and non- Americans. The National Kidney Disease Education Program (NKDEP) does not endorse the use of the MDRD equation for patients that are not between the ages of 18 and 70, are , have extremes of body size, muscle mass, or nutritional status, or are non- or non-. According to the National Kidney Foundation, irrespective of diagnosis, the stage of the disease is based on the level of kidney function: Stage Description GFR(mL/min/1.73 m(2)) 1 Kidney damage with normal or decreased GFR 90 2 Kidney damage with mild decrease in GFR 60-89 3 Moderate decrease in GFR 30-59 4 Severe decrease in GFR 15-29 5 Kidney failure <15 (or dialysis) 8 Normal Range 180 to 914 Indeterminate Range 145 to 180 Deficient Range <145 9 Acute inflammation: >10.00 10 Because ethnic data is not always readily available, this report includes an eGFR for both -Americans and non- Americans. The National Kidney Disease Education Program (NKDEP) does not endorse the use of the MDRD equation for patients that are not between the ages of 18 and 70, are , have extremes of body size, muscle mass, or nutritional status, or are non- or non-. According to the National Kidney Foundation, irrespective of diagnosis, the stage of the disease is based on the level of kidney function: Stage Description GFR(mL/min/1.73 m(2)) 1 Kidney damage with normal or decreased GFR 90 2 Kidney damage with mild decrease in GFR 60-89 3 Moderate decrease in GFR 30-59 4 Severe decrease in GFR 15-29 5 Kidney failure <15 (or dialysis) 11 >100 to <200 pg/mL: likely compensated congestive heart failure (CHF) 200 to 400 pg/mL: likely moderate CHF >400 pg/mL: likely moderate to severe CHF 12 Reference Range and Interpretation: TnI (ng/mL) Interpretation Less Than 0.03 ng/mL Not supportive of diagnosis of AL 0.03 - 0.50 ng/mL Indeterminate: suggest serial studies if clinically indicated. Greater than 0.5 ng/mL Consistent with diagnosis of AL 13 Please note: The following may produce a false positive D Dimer test: - Rheumatoid factor greater than 60 IU/ml - Plasma hemoglobin greater than 0.05 gm/dl - Bilirubin greater than 50 mg/dl - Lipids greater than 1000 mg/dl - FDP greater than 20 ug/ml 14 Reference Range and Interpretation: TnI (ng/mL) Interpretation Less Than 0.03 ng/mL Not supportive of diagnosis of AL 0.03 - 0.50 ng/mL Indeterminate: suggest serial studies if clinically indicated. Greater than 0.5 ng/mL Consistent with diagnosis of AL 15 SST SENT TO LAB 16 Reference Range and Interpretation: TnI (ng/mL) Interpretation Less Than 0.03 ng/mL Not supportive of diagnosis of AL 0.03 - 0.50 ng/mL Indeterminate: suggest serial studies if clinically indicated. Greater than 0.5 ng/mL Consistent with diagnosis of AL 17 Reference Range and Interpretation: TnI (ng/mL) Interpretation Less Than 0.03 ng/mL Not supportive of diagnosis of AL 0.03 - 0.50 ng/mL Indeterminate: suggest serial studies if clinically indicated. Greater than 0.5 ng/mL Consistent with diagnosis of AL 18 SEE RESULT BELOW Name: RADHA HANSEN : [address]: Otilia Kuhn MD Acct: [id number] Unit: [id number] AGE: 65 Location: [facility] Re05/30/15 SEX: F Status: REG REF SPEC: [id number] GENARO: 05/30/[address]: Otilia Kuhn MD REQ: [id number] RECD: 05/30/15 STATUS: SOUT _ ORDERED: IMAGE ANALYSIS, HPV/Thin Prep, HPV 16/18 GENE FINAL DIAGNOSIS Negative for Intraepithelial lesion or Malignancy A. Ectocervical/Endocervical Specimen Adequacy: Satisfactory of evaluation Transformation zone component identified Patient Information: HPV: High risk HPV RNA testing regardless of pap results. HPV 16/18 Genotype for HPV pos Actual Specimen Date: 05/30/15 LMP If Unknown: 14 yrs ago ?: N Post Menopausal?: Y Hysterectomy?: N Previous Abnormal Pap Smears?:N Date Time Test Result Flag (u) Normal Range 05/30/15 1256 HPV RNA RFLX GE Negative Negative The high-risk HPV types detected by the assay include: 16, 18, 31, 33, 35, 39, 45, 51, 52, 56, 58, 59, 66, and 68. Signed (signature on file) MEGHAN Ash (ASC) 05/31 1207 This Pap test was evaluated with the assistance of the [employer] Test Imaging System. Due to cytologic findings at the dry end operator microscope, comprehensive manual rescreening by a Support Worker may be required. The Pap Smear is a screening test designed to aid in the detection of premalignant and malignant conditions of the uterine cervix. It is not a diagnostic procedure and should not be used as the sole means of detecting cervical cancer. Both false- positive and false- negative reports do occur. Depending on your risk status, a Pap smear should be obtained and evaluated every 1-3 years. END OF REPORT * ML=Testing performed at Main Lab DEPARTMENT OF PATHOLOGY, [address] [place] [address] Mushtaq Mota M.D. Director [facility] # [id number] 19 The high-risk HPV types detected by the assay include: 16, 18, 31, 33, 35, 39, 45, 51, 52, 56, 58, 59, 66, and 68. 20 Desirable <150 Borderline high 150-199 High 200-499 Very High >500 21 Desirable <200 Borderline high 200-239 High >239 22 Low <40 Desirable: 40-60 High: >60 23 Desirable: <100 mg/dL Near Optimal: 100-129 mg/dL Borderline High: 130-159 mg/dL High: 160-189 mg/dL Very High: >189 mg/dL 24 FASTING 10 HOUR 25 FASTING 10 HOUR 26 Reference Range and Interpretation: TnI (ng/mL) Interpretation Less Than 0.03 ng/mL Not supportive of diagnosis of AL 0.03 - 0.50 ng/mL Indeterminate: suggest serial studies if clinically indicated. Greater than 0.5 ng/mL Consistent with diagnosis of AL 27 Because ethnic data is not always readily available, this report includes an eGFR for both -Americans and non- Americans. The National Kidney Disease Education Program (NKDEP) does not endorse the use of the MDRD equation for patients that are not between the ages of 18 and 70, are , have extremes of body size, muscle mass, or nutritional status, or are non- or non-. According to the National Kidney Foundation, irrespective of diagnosis, the stage of the disease is based on the level of kidney function: Stage Description GFR(mL/min/1.73 m(2)) 1 Kidney damage with normal or decreased GFR 90 2 Kidney damage with mild decrease in GFR 60-89 3 Moderate decrease in GFR 30-59 4 Severe decrease in GFR 15-29 5 Kidney failure <15 (or dialysis) 28 RUN DATE: 04/16/13 [facility] LAB LIVE PAGE 1 RUN TIME: 3[address] [place], [place] [address] Specimen Inquiry Name: RADHA HANSEN : [address]: Otilia Kuhn MD Acct: [id number] Unit: [id number] AGE: 63 Location: [facility] Re04/15/13 SEX: F Status: REG REF SPEC: [id number] GENARO: 04/15/13-1129 [facility] DR: Otilia Kuhn MD REQ: [id number] RECD: 04/15/13 STATUS: SOUT _ ORDERED: IMAGE ANALYSIS FINAL DIAGNOSIS Negative for Intraepithelial lesion or Malignancy A. Ectocervical/Endocervical Specimen Adequacy: Satisfactory of evaluation Transformation zone component identified Patient Information: HPV: Thin Layer Pap Test w/reflex to high risk HPV DNA testing when ASCUS Actual Specimen Date: 04/15/13 LMP If Unknown: 5 years IUD: N ?: N Hysterectomy?: N Signed (signature on file) MEGHAN Ash (ASCP) 04/16 1233 This Pap test was evaluated with the assistance of the [employer] Test Imaging System. Due to cytologic findings at the dry end operator microscope, comprehensive manual rescreening by a Support Worker may be required. The Pap Smear is a screening test designed to aid in the detection of premalignant and malignant conditions of the uterine cervix. It is not a diagnostic procedure and should not be used as the sole means of detecting cervical cancer. Both false- positive and false- negative reports do occur. Depending on your risk status, a Pap smear shoudl be obtained and evaluated every 1-3 years. END OF REPORT * ML=Testing performed at Main Lab DEPARTMENT OF PATHOLOGY, [address] [place] [address] Mushtaq Mota M.D. Director [facility] Permit #[id number] 29 Because ethnic data is not always readily available, this report includes an eGFR for both -Americans and non- Americans. The National Kidney Disease Education Program (NKDEP) does not endorse the use of the MDRD equation for patients that are not between the ages of 18 and 70, are , have extremes of body size, muscle mass, or nutritional status, or are non- or non-. According to the National Kidney Foundation, irrespective of diagnosis, the stage of the disease is based on the level of kidney function: Stage Description GFR(mL/min/1.73 m(2)) 1 Kidney damage with normal or decreased GFR 90 2 Kidney damage with mild decrease in GFR 60-89 3 Moderate decrease in GFR 30-59 4 Severe decrease in GFR 15-29 5 Kidney failure <15 (or dialysis) 30 Reference Range and Interpretation: TnI (ng/mL) Interpretation Less Than 0.06 ng/mL Not supportive of diagnosis of AL 0.06 - 0.50 ng/mL Indeterminate: suggest serial studies if clinically indicated. Greater than 0.5 ng/mL Consistent with diagnosis of AL 31 CKMB interpretation should be made in conjunction with clinical symptoms, patient history and EKG changes. 32 CKMB interpretation should be made in conjunction with clinical symptoms, patient history and EKG changes. Procedures Date Code Description Status 07/20/2018 55543 EKG Tracing & Interpretation Completed 07/01/2018 06668 Holter Monitor Review (24 hr)dr review & interp only Completed 06/26/2018 02039 ECG Monitor/Recording W/Visual Superimposition Completed Scanning 06/26/2018 48037 EKG Tracing & Interpretation Completed 06/18/2018 58911 EKG Tracing & Interpretation Completed 03/20/2018 48346 EKG Tracing & Interpretation Completed 06/27/2017 15539 EKG Tracing & Interpretation Completed 05/08/2017 30751 TKR Total Knee Replacement Completed 05/08/2017 85939 TKR Total Knee Replacement Completed 04/23/2017 97226 Holter Monitor Review (24 hr) review & interp only Completed 04/21/2017 20635 EKG Tracing & Interpretation Completed 04/21/2017 90729 ECG Monitor/Recording W/Visual Superimposition Completed Scanning 03/28/2017 96020 Inject/Drain Joint/Bursa Major W/O US Completed 02/06/2017 32768 EKG Tracing & Interpretation Completed 12/26/2016 62307 EKG Tracing & Interpretation Completed 12/18/2016 35993 EKG Tracing & Interpretation Completed 10/31/2016 [id number] Mammogram Completed 05/02/2016 [id number] Bone Mineral Density Test Completed 12/29/2015 20651 Left Heart Cath. Incl S/I Coronaries, Angio S/I V Gram Completed If Done 12/28/2015 93944 Stress ECHO Interpretation/Report Hospital Completed 12/28/2015 45248 Treadmill Interp/Report Only Completed 12/28/2015 45357 Stress Test Supervsn W/Out I/R Completed 09/19/2015 72179 EKG Tracing & Interpretation Completed 06/26/2015 63386 Cardiac Event Monitor Completed 05/04/2015 42091 ECHO Transthoracic, Real-Time 2D With Doppler And Completed Color Flow 04/27/2015 [id number] Mammogram Completed 04/24/2015 60723 EKG Tracing & Interpretation Completed 10/07/2013 26781 Cardiac Event Monitor Completed 09/07/2013 00047 Holter Monitoring 24 HR New Completed 09/06/2013 09844 EKG Tracing & Interpretation Completed 06/09/2013 [id number] Colonoscopy Completed 04/13/2013 86811 Cardiac Event Monitor Completed 02/26/2013 [id number] Mammogram Completed 02/21/2013 80516 EKG, Interpretation Only Completed 02/21/2013 67516 Stress Test Supervsn W/Out I/R Completed 02/21/2013 98600 Treadmill Interp/Report Only Completed 02/21/2013 60474 ECHO Transthorasic Realtime 2D W Doppler & Color Flow Completed Hosp 02/19/2013 37318 Holter Monitoring 24 HR New Completed 02/17/2013 59281 EKG Tracing & Interpretation Completed 02/16/2013 52770 EKG, Interpretation Only Completed Encounters Type Date Location Provider Dx Diagnosis Office Visit 06/18/2018 [facility] Shashank CECILY Morel I48.0 Paroxysmal atrial 1:40p Medicine - fibrillation [place] Office Visit 06/18/2018 [place] [facility] Aurelio Ye, I48.0 Paroxysmal atrial 10:00a Of [facility] DO FACC fibrillation R06.81 Apnea, not elsewhere classified I49.1 Atrial premature depolarization E66.8 Other obesity Z68.41 Body mass index (BMI) 40.0-44.9, adult Office Visit 03/20/2018 1:40p [facility] Internal Shashank Maria Teresa, K21.9 Gastro- esophageal Medicine - [employer]INE [employer] UP OPERATOR reflux disease without [place] esophagitis M71.22 Synovial cyst of popliteal space [[place]], left knee R07.89 Other chest pain Office Visit 02/13/2018 3:40p [facility] Internal Shashank Maria Teresa, CASTING MACHINE SET UP OPERATOR M25.552 Pain in left Medicine - hip [place] M79.662 Pain in left lower leg Office Visit 06/27/2017 [place] Aurelio Cortes Z01.810 Encounter for 1:00p Cardiology Radha Ye DO preprocedural [facility] FAC cardiovascular examination R00.2 Palpitations Office Visit 06/27/2017 11:00a [facility] Internal Shashank Maria Teresa, Z01.818 Encounter for other Medicine - CASTING MACHINE SET UP OPERATOR preprocedural [place] examination N93.8 Other specified abnormal uterine and vaginal bleeding I48.0 Paroxysmal atrial fibrillation E03.9 Hypothyroidism, unspecified K21.9 Gastro-esophageal reflux disease without esophagitis R00.1 Bradycardia, unspecified Office Visit 05/09/2017 9:29a [place] Ariella Hung, I48.0 Paroxysmal atrial Assoc,pc N.P. fibrillation Hospitalists E03.9 Hypothyroidism, unspecified F32.89 Other specified depressive episodes Z96.651 Presence of right artificial knee joint Office Visit 05/08/2017 9:28a [place] Ariella Hung, I48.0 Paroxysmal atrial Assoc,pc N.P. fibrillation Hospitalists E03.9 Hypothyroidism, unspecified Z96.651 Presence of right artificial knee joint F32.89 Other specified depressive episodes Office Visit 05/01/2017 8:50a [facility] Internal Iva Z01.818 Encounter for other Medicine - María Beltran preprocedural [place] examination M17.11 Unilateral primary osteoarthritis, right knee I49.1 Atrial premature depolarization R00.1 Bradycardia, unspecified Z85.820 Personal history of malignant melanoma of skin F41.9 Anxiety disorder, unspecified K21.9 Gastro-esophageal reflux disease without esophagitis E03.9 Hypothyroidism, unspecified E83.42 Hypomagnesemia E66.9 Obesity, unspecified Office Visit 04/21/2017 [place] Aurelio Cortes Z01.810 Encounter for 1:40p Cardiology Of Ye, preprocedural [facility] cardiovascular examination R00.1 Bradycardia, unspecified R42 Dizziness and giddiness I49.1 Atrial premature depolarization Office Visit 03/28/2017 8:30a [facility] Coral Sales, M25.561 Pain in right Of C.M.A. M.D. knee M25.461 Effusion, right knee M17.11 Unilateral primary osteoarthritis, right knee M21.061 Valgus deformity, not elsewhere classified, right knee Office Visit 03/21/2017 9:00a [facility] Internal Hallie Cuenca, M54.5 Low back pain Iam Aleman M25.561 Pain in right knee Office Visit 12/26/2016 1:00p [facility] Aurelio Cortes R00.1 Bradycardia, Of [facility] DO Ephraim unspecified FAC I49.1 Atrial premature depolarization Office Visit 12/18/2016 11:30a [facility] Internal Iva R00.1 Bradycardia, Iam Beltran M.D. unspecified [facility] Z01.818 Encounter for other preprocedural examination N95.0 Postmenopausal bleeding Office Visit 09/05/2016 1:00p [facility] Internal Iva Z00.01 Encounter for Iam Beltran M.D. general adult [facility] medical exam w abnormal findings N95.0 Postmenopausal bleeding E83.42 Hypomagnesemia G47.9 Sleep disorder, unspecified E66.9 Obesity, unspecified Z85.820 Personal history of malignant melanoma of skin Z23 Encounter for immunization Z12.31 Encntr screen mammogram for malignant neoplasm of breast R00.2 Palpitations I49.5 Sick sinus syndrome Z12.4 Encounter for screening for malignant neoplasm of cervix Office Visit 04/24/2016 10:50a [facility] Internal Iva Beltran, R53.83 Other fatigue Iam Archuleta G47.9 Sleep disorder, unspecified M25.561 Pain in right knee E66.9 Obesity, unspecified Z13.820 Encounter for screening for osteoporosis R22.9 Localized swelling, mass and lump, unspecified E83.42 Hypomagnesemia Office Visit 12/29/2015 4:28p [facility] Donnie Mathews I24.9 Acute ischemic Of [facility] AT [facility] MD Rick, heart disease, FACC, FSCAI unspecified I49.5 Sick sinus syndrome Office Visit 12/29/2015 12:21p [facility] Kevyn R07.9 Chest pain, Assoc,yulissa Lopez M.D. unspecified Hospitalists F41.9 Anxiety disorder, unspecified K21.9 Gastro-esophageal reflux disease without esophagitis Office Visit 12/28/2015 [facility] Madi R07.9 Chest pain, 12:20p Assoc,yulissa Maya N.PDonavon unspecified Hospitalists F41.9 Anxiety disorder, unspecified K21.9 Gastro-esophageal reflux disease without esophagitis Office Visit 11/16/2015 11:15a Pulmonology And Bruno G47.9 Sleep disorder, Sleep Services Of María Gutierrez unspecified [facility] I47.1 Supraventricular tachycardia Office Visit 09/19/2015 11:45a [facility] Of Keisha Wild M.D. R68.84 Jaw pain [facility] I47.1 Supraventricular tachycardia R53.83 Other fatigue K21.9 Gastro-esophageal reflux disease without esophagitis Office Visit 08/22/2015 10:40a [facility] Internal Otilia Kuhn L03.031 Cellulitis of Iam Gil M.D. right toe [place] R00.2 Palpitations E03.9 Hypothyroidism, unspecified Office Visit 08/03/2015 10:20a [facility] Internal Otilia L03.031 Cellulitis of Medicine Jeffery Kuhn M.D. right toe [place] Office Visit 07/10/2015 1:00p [facility] Internal Prudencio Forte, J20.9 Acute bronchitis, Medicine - CASTING MACHINE SET UP OPERATOR unspecified [place] Office Visit 05/30/2015 9:00a [facility] Internal Otilia Z23 Encounter for Iam Kuhn M.D. 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 premature [facility] depolarization I49.1 Atrial premature depolarization Office Visit 04/24/2015 8:30a [facility] Keisha Wild, 785.2 Murmur Cardiac Of [facility] M.D. Undiagnosed 780.79 Malaise And Fatigue Other 427.69 Premature Beats Other Office Visit 04/20/2015 10:40a [facility] Internal Otilia Khun, 368.10 Visual Disturbance Medicine - María Subjective Unspec [place] 427.61 Premature Beats Supraventricular 300.02 Anxiety Disorder Generalized 244.9 Hypothyroidism Other Unspec 374.44 Sensory Disorder 785.2 Murmur Cardiac Undiagnosed Office Visit 10/18/2013 [place] Keisha Wild, 427.61 Premature Beats 10:30a Cardiology Of M.DDonavon Supraventricular [facility] 780.79 Malaise And Fatigue Other Office Visit 09/06/2013 3:30p [place] Nurse Visit 785.1 Palpitations Cardiology Of IC Deck Engine Operator Office Visit 05/11/2013 12:30p [facility] Internal Leni 782.0 Skin Sensation Medicine - Salina Foster N.P. Office Visit 04/15/2013 11:00a [facility] Internal Otilia 244.9 Hypothyroidism Other Iam - María Kuhn Unspec [place] V76.19 Screening Breast Exam Malignant Neoplasms Other V76.2 Screening Malignant Neoplasm Cervix V76.41 Screening Malignant Neoplasm Rectum 278.00 Obesity Unspec V72.31 Routine Shower Enclosure Installer Examination Office Visit 02/23/2013 1:40p [facility] Internal Otilia Kuhn, V70.0 Examination Medicine - María General Medical [place] Routine [facility] 427.89 Cardiac Dysrhythmia Other 305.20 Cannabis Abuse Unspec 278.00 Obesity Unspec V76.19 Screening Breast Exam Malignant Neoplasms Other Office Visit 02/21/2013 11:43a [facility] Keisha Wild, 785.2 Murmur Cardiac Of [facility] M.D. Undiagnosed 427.1 Paroxysmal Ventricular Tachycardia 427.61 Premature Beats Supraventricular 427.69 Premature Beats Other Office Visit 02/21/2013 [facility] 427.0 PSVT Paroxysmal 3:48p Assocyulissa M.D. Supraventricular Hospitalists Tachycardia 427.81 Sinoatrial Node Dysfunction 304.31 Cannabis Dependence Continuous 300.02 Anxiety Disorder Generalized Office Visit 02/20/2013 11:27a Elvia Wild, 427.31 Atrial Cardiology Of M.D. Fibrillation [facility] 785.1 Palpitations Office Visit 02/20/2013 [facility] 427.0 PSVT Paroxysmal 3:48p Assoc,yulissa Peters M.D. Supraventricular Hospitalists Tachycardia 427.81 Sinoatrial Node Dysfunction 304.31 Cannabis Dependence Continuous 300.02 Anxiety Disorder Generalized Office Visit 02/17/2013 11:15a Elvia Wild, 427.31 Atrial Cardiology Of M.D. Fibrillation [facility] 786.59 Pain Chest Other 427.89 Cardiac Dysrhythmia Other 780.4 Dizziness & Giddiness Office Visit 02/16/2013 1:59p [facility] Joe Contreras, 786.50 Pain Chest Assoc,yulissa Daniel Unspec Hospitalists 427.31 Atrial Fibrillation 305.20 Cannabis Abuse Unspec 530.81 Esophageal Reflux Plan of Treatment Future Appointment(s):09/28/2018 2:00 pm - Priscilla Jacques MD at [facility] Of [facility]09/25/2018 1:00 pm - Shashank Morel NP at [facility] Internal Medicine [facility]07/20/2018 - Aurelio eY, DO FACCI48.0 Paroxysmal atrial fibrillationFollow up:f/u 6 months with EKG
[2018-07-25 03:48] LABS: ABS Basophils 0.1 10^3/ul (0-0.2); ABS Eosinophils 0.2 10^3/ul (0-0.6); ABS Monocytes 0.6 10^3/ul (0-0.8); ABS Neutrophils 4.7 10^3/ul (1.5-7.7); ABS Nucleated RBC 0 10^3/ul; Eosinophil % 3.1 %; Hematocrit 40 % (35-47); Lymphocyte % 26.3 %; Mean Corpuscular HGB Conc 33 g/dl (31-36); Mean Corpuscular Hemoglobin 28 pg (27-31); Mean Corpuscular Volume 86 fL (80-97); Mean Platelet Volume 8.3 fL (7.4-10.4); Nucleated Red Blood Cells % 0.1; Platelet Count 253 10^3/ul (150-450); Red Blood Count 4.62 10^6/ul (4.00-5.40); Red Cell Distribution Width 15 % (10.5-15); White Blood Count 7.7 10^3/ul (3.5-10.8)
[2018-07-25 03:56] LABS: INR 0.88 (0.77-1.02)
--- NOTE | 2018-07-25 03:59 | ED ---
HPI Cardiac - HPI Summary HPI Summary: The patient is a 68 y/o F presenting to [facility] with a chief complaint of palpitations and fast HR starting at 0200 this morning. She additionally c/o chest discomfort and nausea but denies SOB. She has hx of Afib, so she has palpitations occasionally; she was recently in the hospital for the same symptoms. She is not currently in pain. She denies sleep apnea. - History of Current Complaint Chief Complaint: EDDysrhythmPalp Stated Complaint: RAPID HR Time Seen by Provider: 07/25/18 02:45 Hx Obtained From: Patient Onset/Duration: Started Minutes Ago - at 0200, Still Present Time of Onset: 02:00 Timing: Constant, Lasting Minutes Initial Severity: Moderate Current Severity: Moderate Pain Intensity: 0 Pain Scale Used: 0-10 Numeric Chest Pain Location: Diffuse Chest Pain Radiates: No Character: Other: - discomfort with palpitations Aggravating Factor(s): Nothing Alleviating Factor(s): Nothing Associated Signs and Symptoms: Positive: Nausea, Palpitations. Negative: Shortness of Breath - Additional Pertinent History Primary Care Physician: COURTNEY - Allergy/Home Medications Allergies/Adverse Reactions: Allergies Allergy/AdvReac Type Severity Reaction Status Date / Time morphine Allergy Intermediate Hallucinati Verified 07/25/18 02:57 ons oxycodone Allergy Intermediate See Comment Verified 07/25/18 02:57 Home Medications: Home Medications Aspirin EC TAB* [Ecotrin EC Low Dose 81 MG*] 162 mg PO DAILY 07/25/18 [History Confirmed 07/25/18] Flecainide TAB* [Tambocor TAB*] 50 mg PO BID 07/25/18 [History Confirmed ] PMH/Surg Hx/FS Hx/Imm Hx Endocrine/Hematology History: Reports: Hx Anemia, Other Endocrine/Hematological Disorders - left arm pit lymphnodes taken out, from melanoma Denies: Hx Anticoagulant Therapy, Hx Blood Disorders, Hx Blood Transfusions, Hx Bone Marrow Disease, Hx Diabetes, Hx Systemic Lupus Erythematosus, Hx Sickle Cell Disease, Hx Thyroid Disease, Hx Unexplained Bleeding Cardiovascular History: Reports: Hx Hypotension, Hx Hypertension, Hx Syncope Denies: Hx Aneurysm, Hx Angina, Hx Angioplasty, Hx Auto Implanted Cardiovert Defib, Hx Cardiac Arrest, Hx Cardiomegaly, Hx Congenital Heart Disease, Hx Congestive Heart Failure, Hx Coronary Artery Disease, Hx Deep Vein Thrombosis, Hx Hypercholesterolemia, Hx Myocardial Infarction, Hx Pacemaker/ICD, Hx Peripheral Vascular Disease, Hx Rheumatic Fever, Hx Valvular Heart Disease, Other Cardiovascular Problems/Disorders Respiratory History: Reports: Hx Asthma - as a child, none now, Hx Seasonal Allergies Denies: Hx Chronic Bronchitis, Hx Chronic Obstructive Pulmonary Disease (COPD ), Hx Cystic Fibrosis, Hx Lung Cancer, Hx Pleural Effusion, Hx Pneumonia, Hx Pulmonary Edema, Hx Pulmonary Embolism, Hx Sleep Apnea, Other Respiratory Problems/Disorders GI History: Reports: Other GI Disorders - GERD Denies: Hx Cirrhosis, Hx Crohn's Disease, Hx Diverticulosis, Hx Gall Bladder Disease, Hx Gastroesophageal Reflux Disease, Hx Gastrointestinal Bleed, Hx Hiatal Hernia, Hx Irritable Bowel, Hx Jaundice, Hx Obstructive Bowel, Hx Ileostomy, Hx Pyloric Stenosis, Hx Ulcer History: Denies: Hx Acute Renal Failure, Hx Benign Prostatic Hyperplasia, Hx Chronic Renal Failure, Hx Dialysis, Hx Kidney Infection, Hx Kidney Stones, Other Problems/Disorders Musculoskeletal History: Reports: Hx Arthritis Denies: Hx Back Problems, Hx Bursitis, Hx Congenital Bone Abnormalities, Hx Fibromyalgia, Hx Gout, Hx Orthopedic Injury, Hx Osteoporosis, Hx Scoliosis, Hx Tendonitis, Other Musculoskeletal History Sensory History: Reports: Hx Contacts or Glasses - wears them at all times, Hx Vision Problem Denies: Hx Cataracts, Hx Eye Injury, Hx Eye Prosthesis, Hx Glaucoma, Hx Macular Degeneration, Hx Deafness, Hx Hearing Aid, Hx Hearing Problem, Other Sensory Impairments Opthamlomology History: Reports: Hx Contacts or Glasses - wears them at all times, Hx Vision Problem Denies: Hx Cataracts, Hx Eye Injury, Hx Eye Prosthesis, Hx Glaucoma, Hx Macular Degeneration, Other Sensory Impairments Neurological History: Reports: Hx Headaches Comment Only: Other Neuro Impairments/Disorders - PAIN CLINIC PT Psychiatric History: Reports: Hx Anxiety, Hx Depression, Hx Panic Disorder, Hx Substance Abuse Denies: Hx Eating Disorder, Hx Inpatient Treatment, Hx Suicide Attempt - Cancer History Cancer Type, Location and Year: melanoma to left shoulder removed in 1997 Hx Chemotherapy: No Hx Radiation Therapy: No - Surgical History Surgery Procedure, Year, and Place: melanoma removal 1997, tonsillectomy and appendectomy as a child, lumpectomy right side. ankle fx, 4 births, left shoulder, right arm. Hx Anesthesia Reactions: No Infectious Disease History: No Infectious Disease History: Denies: Hx Clostridium Difficile, Hx Hepatitis, Hx Human Immunodeficiency Virus (HIV), Hx Shingles, Hx Tuberculosis, Traveled Outside the [place] in Last 30 Days - Family History Known Family History: Negative: Seizure Disorder - Social History Alcohol Use: None Substance Use Type: Reports: None Substance Use Comment - Amount & Last Used: in the past Hx Tobacco Use: No Smoking Status (MU): Former Smoker Amount Used/How Often: smoked for 25 years Have You Smoked in the Last Year: No Review of Systems Positive: Palpitations, Other - chest discomfort Negative: Shortness Of Breath Positive: Nausea All Other Systems Reviewed And Are Negative: Yes Physical Exam - Summary Physical Exam Summary: Appearance: Well appearing, no pain distress Skin: warm, dry, reflects adequate perfusion Head/face: normal Eyes: EOMI, NAZANIN ENT: normal Neck: supple, non-tender Respiratory: CTA, breath sounds present Cardiovascular: tachycardia, irregular Abdomen: non-tender, soft Musculoskeletal: normal, strength/ROM intact Neuro: normal, sensory motor intact, A&Ox3 Triage Information Reviewed: Yes Vital Signs On Initial Exam: Initial Vitals Temp Pulse Resp BP Pulse Ox 98.5 F 121 18 152/99 98 07/25/18 02:34 07/25/18 02:34 07/25/18 02:34 07/25/18 02:34 07/25/18 02:34 Vital Signs Reviewed: Yes Diagnostics - Vital Signs Vital Signs Temp Pulse Resp BP Pulse Ox 07/25/18 02:53 84 21 07/25/18 02:51 20 132/111 07/25/18 02:34 98.5 F 121 18 152/99 98 - Laboratory Lab Results: Lab Results 07/25/18 Range/Units 03:27 WBC 7.7 (3.5-10.8) 10^3/ul RBC 4.62 (4.00-5.40) 10^6/ul Hgb 13.0 (12.0-16.0) g/dl Hct 40 (35-47) % MCV 86 (80-97) fL MCH 28 (27-31) pg MCHC 33 (31-36) g/dl RDW 15 (10.5-15) % Plt Count 253 (150-450) 10^3/ul MPV 8.3 (7.4-10.4) fL Neut % (Auto) 60.7 % Lymph % (Auto) 26.3 % [place] % (Auto) 8.3 % Eos % (Auto) 3.1 % Baso % (Auto) 1.6 % Absolute Neuts (auto) 4.7 (1.5-7.7) 10^3/ul Absolute Lymphs (auto) 2.0 (1.0-4.8) 10^3/ul Absolute Monos (auto) 0.6 (0-0.8) 10^3/ul Absolute Eos (auto) 0.2 (0-0.6) 10^3/ul Absolute Basos (auto) 0.1 (0-0.2) 10^3/ul Absolute Nucleated RBC 0 10^3/ul Nucleated RBC % 0.1 Result Diagrams: 07/25/18 03:27 07/25/18 03:27 Lab Statement: Any lab studies that have been ordered have been reviewed, and results considered in the medical decision making process. - Radiology CXR Radiology Interpretation Completed By: Radiologist Summary of Radiographic Findings: No acute findings. ED physician has reviewed this report. - EKG 02:41 Cardiac Rate: Other Rate - Afib - 146 BPM EKG Rhythm: Atrial Fibrillation Summary of EKG Findings: No STEMI. Disposition - Course Course Of Treatment: The patient is a 68 y/o F [facility] with a chief complaint of palpitations and fast HR starting at 0200 this morning. She additionally c/o chest discomfort and nausea but denies SOB. Hx of Afib. Upon examination, the patient is tachycardic. In the ED course, the patient was given Diltiazem. Bloodwork obtained. EKG reveals Afib at 146BPM. CXR reveals no acute pathology. She is diagnosed with Afib with RVR, palpitations, and sick sinus syndrome. Patient will be admitted to [facility] for further care by Dr. Santana at 04:15. Patient agrees with this plan and understands the need for admission. - Differential Dx - Cardiopulmonary Differential Diagnoses - Cardiopulmonary: Atrial Fibrillation, Other - palpitations - Diagnoses Provider Diagnoses: Palpitations, Sick sinus syndrome, Atrial fibrillation with rapid ventricular response - Physician Notifications Discussed Care Of Patient With: Maryuri Santana - hospitalist Time Discussed With Above Provider: 04:15 Instructed by Provider To: Other - Dr. Santana accepts the patient for admission at 04:15. Admit/Transition Orders Completed By ED Provider: Yes - Critical Care Time Critical Care Time: 30-74 min Discharge - Sign-Out/Discharge Documenting (check all that apply): Patient Departure - Patient will be admitted to [facility] for further care by Dr. Santana. - Discharge Plan Condition: Stable Disposition: ADMITTED TO [facility] - Billing Disposition and Condition Condition: STABLE Disposition: Admitted to [facility] - Attestation Statements Document Initiated by Scribe: Yes Documenting Scribe: Carmen Perry Provider For Whom Rober is Documenting (Include Credential): Dr. Daniel Michel MD Scribe Attestation: Carmen Mata scribed for Dr. Daniel Michel MD on 07/25/18 at 0605. Scribe Documentation Reviewed: Yes Provider Attestation: The documentation as recorded by the Carmen tyson accurately reflects the service I personally performed and the decisions made by , Dr. Daniel Michel MD Status of Scribe Document: Viewed
[2018-07-25 04:07] LABS: EGFR Non-African American 53.4 (>60)
[2018-07-25] MEDS ORDERED: Ondansetron INJ* 2 MG/ML VIAL IV PRN (05:46)
--- NOTE | 2018-07-25 07:48 | CONSULT ---
Subjective Date of Service: 07/25/18 Interval History: Admit and consult date 07/25/2018 PCP: Shashank Morel NP Service: Hospitalist CC: Palpitations Reason for consult: Atrial fibrillation, sinus node disease HPI: Radha Guardado is a 68 year old woman well known to me admitted overnight with palpitations and found with rapid atrial fibrillation. With high dose (20 mg IV diltiazem) she had a 3.2 second post-conversion pause and felt cold and flushed transiently and converted to her baseline sinus bradycardia. She now feels at her baseline. She has a sleep medicine appointment in September for suspected sleep apnea. She has had rare positional intermittent dizziness which has been a longstadning issue. She has no spontaneous dizziness, syncope , chest discomfort or change in breathing. Allergies: Morphine and Related 02/23/13 Percocet 02/23/13 Environmental 05/29/15 PMH: Pafib Symptomatic PVC and PAC's Sinus node dysfunction Hyperlipidemia Gastroesophageal Reflux Disease Obesity Retinal Tear - (03/2015) arthritis Thyroid Disease Depression Surgical Hx: Eye Surgery - (2014) retinal repair, acute, Dr. Weston Melanoma 1997, Childbirth [id number], Ankle Surgery, Appendectomy, Breast Biopsy, right arm, Tonsillectomy Hospitalizations: FH: Diabetes Type II - PGM Hypertension, Stroke, Cancer. Father: Brain tumor; heart issues. Siblings:Brother 63 from brain cancer, Sister recently heart issues, 6 - Others healthy. SH: Marital: .Lives With: Alone.Occupation: retired clerical. Personal Habits: Smoking: Patient is a former smoker - Quit marijuana january,. quit Cig 30 yrs ago.Cigarette Use: Former Cigarette Smoker 1 Pack Daily - Pt denies smoking pipe, e-cigarettes, or using chewing tobacco. Pt reports she has smoked cigars on ocassion in the past. , quit 25 yr - (age 41 Years).Alcohol : Has consumed alcohol in the past, Quit in 2012.Drug Use: Formerly used Marijuana regularly - started at age 19 , stopped 2009.Daily Caffeine: Consumes on average 2 cups of decaff coffee per day.Exercise Type: Exercises sporadically - Walks every couple of weeks. Medications Active Medications: Acetaminophen (Tylenol Tab*) 650 mg PO Q4H PRN PRN Reason: PAIN Aspirin (Aspirin Ec Tab*) 162 mg PO DAILY [facility] Digoxin (Lanoxin Tab*) 0.125 mg PO MoWeFr@0900 [facility] Famotidine (Pepcid Tab*) 20 mg PO BID [facility]; Protocol Flecainide Acetate (Tambocor Tab*) 100 mg PO BID [facility] Ondansetron HCl (Zofran Inj*) 4 mg IV Q6H PRN PRN Reason: NAUSEA Home Medications: Digoxin TAB* [Lanoxin TAB*] 0.125 mg PO MOWEFR 12/28/15 [History Confirmed 07/25] Escitalopram (NF) [Lexapro 10 mg (NF)] 10 mg PO QPM 12/28/15 [History Confirmed 07/25/18] Lansoprazole CAP (NF) [Prevacid CAP (NF)] 15 mg PO BID 12/28/15 [History Confirmed 07/25/18] raNITIdine HCl [Zantac] 150 mg PO BID 06/05/18 [History Confirmed 07/25/18] Aspirin EC TAB* [Ecotrin EC Low Dose 81 MG*] 162 mg PO DAILY 07/25/18 [History Confirmed 07/25/18] Flecainide TAB* [Tambocor TAB*] 50 mg PO BID 07/25/18 [History Confirmed ] Review of Systems - Measurements Intake and Output: Intake and Output Last 24 Hours 07/23/18 07/24/18 07/25/18 07/26/18 06:59 06:59 06:59 06:59 Weight 264 lb 12.8 oz - Review of Systems Review of Systems Statement: All other review of systems negative, unless stated above. Objective Vital Signs: Temp Pulse Resp BP Pulse Ox 98.9 F 44 16 141/66 99 07/25/18 06:25 07/25/18 06:25 07/25/18 06:25 07/25/18 06:25 07/25/18 06:25 Oxygen Devices in Use Now: None Laboratory Results: 07/25/18 03:27 07/25/18 03:27 INR (Anticoag Therapy) 0.88 (0.77-1.02) 07/25/18 03:27 APTT 33.2 seconds (26.0-36.3) 07/25/18 03:27 Total Bilirubin 0.30 mg/dL (0.2-1.0) 07/25/18 03:27 AST 21 U/L (13-39) 07/25/18 03:27 ALT 16 U/L (7-52) 07/25/18 03:27 Alkaline Phosphatase 111 U/L (34-104) H 07/25/18 03:27 Total Protein 7.3 g/dL (6.4-8.9) 07/25/18 03:27 Albumin 4.0 g/dL (3.2-5.2) 07/25/18 03:27 Globulin 3.3 g/dL (2-4) 07/25/18 03:27 Albumin/Globulin Ratio 1.2 (1-3) 07/25/18 03:27 TSH 6.94 mcIU/mL (0.34-5.60) H 07/25/18 03:27 07/25/18 07/25/18 03:27 06:02 Troponin I 0.00 0.01 mg 2.0 Diagnostic Imaging: Cardiac Catheterization - (12/29/2015) Left heart catheterization, left ventriculography No obstructive coronary disease. Normal LV systolic function. Systolic hypertension with probable diastolic dysfunction. Non-ischemic troponin elevation. False-positive stress echo with dobutamine for ischemia. EKG Data: EKG 07/25/2018: Rapid afib 146 bpm with non-specific st changes and pvc vs. kike beat Repeat EKG: sinus bradycardia 52 bpm, otherwise normal ekg, normal qtc 06/05/2018: Rapid afib 140 bpm ekg 12/26/2016: sinus bradycardia and reliable junctional escape ~ 40 bpm on very high dose digoxin. (asymptomatic) Holter Monitor - (06/26/2018) Min HR 36 bpm, avg 46 bpm, max 113 bpm, 218 pac's , several brief atrial tachyarrhythmias, max 1.9 second pause Holter Monitor - (04/21/2017) Patient had palpitations/thumps associated with PAC and PVC's (4 PVC's, 280 PAC's), no arrhythmias, no significant pauses. Min HR 40 bpm, avg 50 bpm, max 84 bpm. Echocardiogram - (05/04/2015) IVS and LPWD 1.0 cm, EF 60-65%. LA mildly dilated. Sclerosis on AV. Trace TR, CA, mild PHTN. Holter Monitor - (02/22/2013) Symptomatic SVT, no sustained tachyarrhythmia. Low resting Hr. Holter Monitor - (09/07/2013) Normal sinus rhythm: 46bpm ( sleep) 87 bpm ( shopping). Rare PVCs. Several short bursts SVT. Pt c/o " blips": NSR, no ectopy. Dobutamine stress echo - (12/28/2015) Chest pain, right jaw pain and back pain with 40 mcg/kg/min dobutamine, septal hypokinesis at peak HR, non-specific ST changes. False positive study normal angiogram Assessment/Plan Radha Guardado is a 68 year old woman with known remote alcohol abuse, obesity, sinus node dysfunction (see conversations from prior outpatient notes), symptomatic PVC and PAC's, paroxysmal rapid atrial fibrillation on aspirin admitted with symptomatic rapid atrial fibrillation had 3.2 second post- conversion pause with high dose IV diltiazem, now back to her baseline resting sinus bradycardia long-standing and doing well. - Continue digoxin as prior, check level - Continue aspirin - continue flecainide, check EKG and increase dose to 100 mg po bid (ordered) - Check nocturnal oximetry (ordered), if abnormal recommend night 02 until sleep medicine appointment - Subclinical hypothyroidism associated with AFib. At this point I would recommend to start low dose synthroid will defer final decision to Primary service - Continue telemetry, can lower alarm rates to less than 30 bpm as long as is in sinus - Check EKG tomorrow afternoon, if ok can be discharged tomorrow from a cardiac standpoint if otherwise remains stable Thank you for allowing me to participate in the cardiovascular care of this patient. Please do not hesitate to contact me with questions or concerns.
[2018-07-25] MEDS: Famotidine TAB* 20 MG PO SCH ×2 (08:39→20:51)
[2018-07-25] MEDS: Aspirin EC TAB* 81 MG TAB.EC PO SCH (08:39)
[2018-07-25] MEDS: Flecainide TAB* 100 MG PO SCH ×2 (08:39→20:49)
[2018-07-25] MEDS ORDERED: Flecainide TAB* 100 MG PO SCH (09:00)
[2018-07-25] MEDS: Acetaminophen TAB* 325 MG PO PRN (13:04)
--- NOTE | 2018-07-25 16:26 | PN ---
Subjective Date of Service: 07/25/18 Interval History: Patient is feeling well. Had a pause this AM when converting from Afib to NSR after diltiazem. Did not pass out. Did not have chest pain. Currently denies CP , SOB, N/V, abdominal pain, diarrhea, dysuria, dizziness or other pain. Had 2 episodes of epigastric pain 2 days before presenting to the hospital without obvious cause which hasn't recurred. Family History: Unchanged from Admission Social History: Unchanged from Admission Past Medical History: Unchanged from Admission Objective Active Medications: Acetaminophen (Tylenol Tab*) 650 mg PO Q4H PRN PRN Reason: PAIN Last Admin: 07/25/18 13:04 Dose: 650 mg Aspirin (Aspirin Ec Tab*) 162 mg PO DAILY [facility] Last Admin: 07/25/18 08:39 Dose: 162 mg Digoxin (Lanoxin Tab*) 0.125 mg PO MoWeFr@0900 [facility] Escitalopram Oxalate (Lexapro (Nf)) 10 mg PO QPM [facility] Famotidine (Pepcid Tab*) 20 mg PO BID [facility]; Protocol Last Admin: 07/25/18 08:39 Dose: 20 mg Flecainide Acetate (Tambocor Tab*) 100 mg PO BID [facility] Last Admin: 07/25/18 08:39 Dose: 100 mg Ondansetron HCl (Zofran Inj*) 4 mg IV Q6H PRN PRN Reason: NAUSEA Vital Signs - 8 hr 07/25/18 11:21 Temperature 98.0 F Pulse Rate 49 Respiratory 16 Rate Blood Pressure 145/64 (mmHg) O2 Sat by Pulse 98 Oximetry Oxygen Devices in Use Now: None Appearance: Patient is a 68yo female who appears stated age and is sitting in the bed in [facility]. Eyes: No Scleral Icterus, PERRLA Ears/Nose/Mouth/Throat: NL Teeth, Lips, Gums, Clear Oropharnyx, Mucous Membranes Moist Neck: NL Appearance and Movements; NL JVP, Trachea Midline Respiratory: Symmetrical Chest Expansion and Respiratory Effort, Clear to Auscultation Cardiovascular: NL Sounds; No Murmurs; No JVD, No Edema, - - Bradycardia Abdominal: NL Sounds; No Tenderness; No Distention, No Hepatosplenomegaly Lymphatic: No Cervical Adenopathy Extremities: No Edema, No Clubbing, Cyanosis Skin: No Rash or Ulcers, No Nodules or Sclerosis Neurological: Alert and Oriented x 3, NL Sensation, NL Muscle Strength and Tone Result Diagrams: 07/25/18 03:27 07/25/18 03:27 Additional Lab and Data: Lab Results Assess/Plan/Problems-Billing Assessment: Patient is a 68yo female with a PMH for sinus node dysfunction, Afib, HLD, GERD and suspected JACOBY who presents with palpitations and was found to be in afib with RVR which converted after a dose of dilitazem with two 3 second pauses. Patient is currently inpatient for close monitoring while increasing flecainide dose. - Patient Problems (1) Afib Current Visit: No Status: Acute Code(s): I48.91 - UNSPECIFIED ATRIAL FIBRILLATION SNOMED Code(s): 34275040 Comment: - Sinus bradycardia - Rhythm control - Converted this AM after episode of RVR with delayed sinus response - Appreciate cardiology consult, increase flecainide for rhythm control - Continue digoxin and flecainide 100mg BID - Digoxin level not high. - Possible JACOBY contributing, overnight pulse oximetry and outpatient sleep study - Anticoagulation with aspirin, [id number] score of 1 (2) GERD (gastroesophageal reflux disease) Current Visit: No Status: Acute Code(s): K21.9 - GASTRO-ESOPHAGEAL REFLUX DISEASE WITHOUT ESOPHAGITIS SNOMED Code(s): 570869486 Comment: - Continue Famotidine (3) Hypothyroidism Current Visit: No Status: Acute Code(s): E03.9 - HYPOTHYROIDISM, UNSPECIFIED SNOMED Code(s): 79928315 Comment: - Subclinical, Will not treat at this time - T3 and T4 WNL (4) Full code status Current Visit: No Status: Acute Code(s): Z78.9 - OTHER SPECIFIED HEALTH STATUS SNOMED Code(s): 034617999 (5) DVT prophylaxis Current Visit: No Status: Acute Code(s): IUD6477 - SNOMED Code(s): 521468536 Comment: - Heparin subQ Status and Disposition: Observation for monitoring of increased flecainide therapy.
--- NOTE | 2018-07-25 17:55 | HP ---
CC: Dr. Beltran; Dr. Aurelio Ye HISTORY AND PHYSICAL: DATE OF ADMISSION: 07/25/18 PRIMARY CARE PROVIDER: Dr. Beltran. MANAGER GROUP HOME: Dr. Aurelio Ye. CHIEF COMPLAINT: Palpitations/AFib. HISTORY OF PRESENT ILLNESS: Ms. Guardado is a 68-year-old female who has a history of paroxysmal atrial fibrillation and is followed by Dr. Aurelio Ye, presented to the emergency room with complaints of being in atrial fibrillation. The patient states that she woke up at approximately 2 a.m. feeling pa lpitations and dizziness. She also felt an uncomfortable sensation on the right side of her chest and had mild shortness of breath. At home, typically she will go in and out of AFib. When she converts out of atrial fibrillation back to sinus rhythm, she notes a sensation of flushing of coolness and t ingling in her arms and across to her back. She did not have any of these sensations and therefore d id not believe that she converted out of atrial fibrillation and therefore presented to the emergency room for evaluation. In the ER, the patient was found to be in rapid atrial fibrillation and was gi annabel 20 mg of IV diltiazem. Subsequently, the patient developed significant bradycardia with pauses u p to 3 to 4 seconds long. The patient is now converted to normal sinus rhythm. She feels quite nerv ous at this point and is worried about going home alone and requests to be observed. PAST MEDICAL HISTORY: 1. Atrial fibrillation. 2. History of melanoma on the left scapular area, status post wide excision. PAST SURGICAL HISTORY: 1. Breast lumpectomy. 2. Right total knee replacement. 3. Right ankle ORIF. 4. Appendectomy. 5. Tonsillectomy. MEDICATIONS: 1. Aspirin 162 mg p.o. daily. 2. Flecainide 50 mg p.o. b.i.d. 3. Ranitidine 150 mg p.o. b.i.d. 4. Lansoprazole 15 mg p.o. b.i.d. 5. Lexapro 10 mg p.o. q.h.s. 6. Digoxin 0.125 mg p.o. Friday, Friday, Friday. ALLERGIES: MORPHINE, CODEINE and PERCOCET which make her vomit. FAMILY HISTORY: Mom at the age of 45 of alcoholic cirrhosis, dad in his 70s. She notes th at he had a brain tumor and had history of CVA, but his cause of is unknown as they became some what distant. SOCIAL HISTORY: The patient does not smoke. She does not drink alcohol. She worked in an administr ative position. She is not . She has 4 children. She indicates her daughter wilder Banerjee clement number [phone] is her healthcare proxy. REVIEW OF SYSTEMS: A complete 11-system review of systems is obtained. Pertinent positives and nega tives are as per HPI and otherwise negative. PHYSICAL EXAMINATION GENERAL: The patient is a well-developed obese middle aged female seen sitting in the stretcher, no acute distress. VITAL SIGNS: Blood pressure 189/76, pulse 40, respirations 23, temp 98.5, O2 sat 98% on room air. HEENT: Pupils are equal and round. Extraocular muscles are intact. Oropharynx is clear. Oral muco sa is moist. There is no submandibular, cervical or supraclavicular adenopathy. Thyroid is not enla rged. No thyroid nodules are noted. PULMONARY: Lungs are clear to auscultation bilaterally. CARDIAC: Normal S1, S2. Heart rate is bradycardic but regular. There are no murmurs. There is tra ce bilateral lower extremity pitting edema. ABDOMEN: Bowel sounds present. Abdomen is soft, nontender, nondistended. MUSCULOSKELETAL: There is no cyanosis or clubbing of the digits. There is full active range of christiano on of all 4 extremities. SKIN: Warm and dry. There are no rashes. NEUROLOGIC: Cranial nerves II through XII are grossly intact. Sensation is intact to light touch th roughout. Strength is 5/5 and symmetric in both upper and lower extremities bilaterally. PSYCH: The patient is alert. She is oriented x3. Affect appears appropriate. DIAGNOSTIC STUDIES/LAB DATA: Sodium 142, potassium 3.9, chloride 105, CO2 of 29, BUN 20, creatinine 1.03, glucose 134, lactic acid 1.6, calcium 9.3, bilirubin 0.3, AST 21, ALT 16, alk phos 111, tropon in 0, albumin 4.0, INR 0.88. WBC 7.7, hemoglobin 13.0, hematocrit 40, platelets 253. EKG reveals atrial fibrillation with rapid ventricular response. Chest x-ray, my interpretation appears clear without any acute intraparenchymal lesions or infiltrate s. ASSESSMENT AND PLAN: Ms. Guardado is a 68-year-old female who has a history of paroxysmal atrial fibrill ation who was awakened from sleep in rapid atrial fibrillation and ultimately presented to the emerge ncy room where she received IV diltiazem and subsequently converted back to normal sinus rhythm. 1. Atrial fibrillation: The patient has a history of paroxysmal atrial fibrillation. At this point , she is in sinus rhythm at her baseline heart rate in the mid 40s. The patient will continue on her usual doses of flecainide and digoxin. At this point, the patient will be admitted under observatio n status to telemetry to ensure that she does not have any further pauses. My suspicion is the pause s were related to the administration of diltiazem. The patient is not on anticoagulation, but does t gustavo aspirin 162 mg daily. We will continue this as well. If the patient goes back into atrial fibri llation or has further pauses, cardiology consultation could be considered. 2. Anxiety: We will continue Lexapro. 3. Gastroesophageal reflux disease: We will hold the lansoprazole but continue the H2 miki. 4. DVT prophylaxis: According to the Adult Thrombosis Prophylaxis Risk Factor Assessment Guide, the patient has a total risk factor score of 4 making her high risk as I anticipate her being discharged home this afternoon, ambulation will be utilized as DVT prophylaxis. If she stays longer, subcutane ous heparin should be ordered. 5. Code status: Full. TIME SPENT: 65 minutes was spent admitting this patient. [id number]/[facility] #: [id number]
[2018-07-25] MEDS ORDERED: CMC:Escitalopram (NF) 10 MG TAB PO SCH (18:00)
[2018-07-25] MEDS: Heparin VIAL(*) 5000 UNITS/ML VIAL (FIVE THOUSAND) SUBCUT SCH (20:49)
[2018-07-26] MEDS: Heparin VIAL(*) 5000 UNITS/ML VIAL (FIVE THOUSAND) SUBCUT SCH ×2 (05:39→14:29)
[2018-07-26 05:45] LABS: EGFR Non-African American 65.8 (>60)
[2018-07-26] MEDS: Aspirin EC TAB* 81 MG TAB.EC PO SCH (08:47)
[2018-07-26] MEDS: Acetaminophen TAB* 325 MG PO PRN (08:47)
[2018-07-26] MEDS: Famotidine TAB* 20 MG PO SCH (08:47)
[2018-07-26] MEDS: Flecainide TAB* 100 MG PO SCH (08:48)
--- NOTE | 2018-07-26 10:25 | PN ---
Subjective Date of Service: 07/26/18 Interval History: f/u Pafib, sinus node dysfunction No CP, dypsnea or lightheadedness occasional palpitations noc ox no significant desaturations BP remains elevated patient ready to go home ekg this am SB 40 bpm, otherwise normal ekg tele: SB/SR Medications Active Medications: Acetaminophen (Tylenol Tab*) 650 mg PO Q4H PRN PRN Reason: PAIN Last Admin: 07/26/18 08:47 Dose: 650 mg Aspirin (Aspirin Ec Tab*) 162 mg PO DAILY [facility] Last Admin: 07/26/18 08:47 Dose: 162 mg Digoxin (Lanoxin Tab*) 0.125 mg PO MoWeFr@0900 [facility] Escitalopram Oxalate (Lexapro (Nf)) 10 mg PO QPM [facility] Last Admin: 07/25/18 17:35 Dose: 10 mg Famotidine (Pepcid Tab*) 20 mg PO BID [facility]; Protocol Last Admin: 07/26/18 08:47 Dose: 20 mg Flecainide Acetate (Tambocor Tab*) 100 mg PO BID [facility] Last Admin: 07/26/18 08:48 Dose: 100 mg Heparin Sodium (Porcine) (Heparin Vial(*)) 5,000 units SUBCUT Q8HR [facility] Last Admin: 07/26/18 05:39 Dose: 5,000 units Ondansetron HCl (Zofran Inj*) 4 mg IV Q6H PRN PRN Reason: NAUSEA Objective Vital Signs: Temp Pulse Resp BP Pulse Ox 98.9 F 43 16 140/65 97 07/26/18 07:18 07/26/18 07:18 07/26/18 07:18 07/26/18 09:58 07/26/18 07:18 Oxygen Devices in Use Now: None Appearance: nad, pleasant Ears/Nose/Mouth/Throat: Clear Oropharnyx, Mucous Membranes Moist Neck: NL Appearance and Movements; NL JVP, Trachea Midline Respiratory: Symmetrical Chest Expansion and Respiratory Effort, Clear to Auscultation Cardiovascular: - - bradycardia, regular, no significant murmur, no edema Abdominal: NL Sounds; No Tenderness; No Distention, - - obese Extremities: No Edema Skin: No Rash or Ulcers Neurological: Alert and Oriented x 3 Laboratory Results: 07/25/18 03:27 07/26/18 05:17 INR (Anticoag Therapy) 0.88 (0.77-1.02) 07/25/18 03:27 APTT 33.2 seconds (26.0-36.3) 07/25/18 03:27 Total Bilirubin 0.30 mg/dL (0.2-1.0) 07/25/18 03:27 AST 21 U/L (13-39) 07/25/18 03:27 ALT 16 U/L (7-52) 07/25/18 03:27 Alkaline Phosphatase 111 U/L (34-104) H 07/25/18 03:27 Total Protein 7.3 g/dL (6.4-8.9) 07/25/18 03:27 Albumin 4.0 g/dL (3.2-5.2) 07/25/18 03:27 Globulin 3.3 g/dL (2-4) 07/25/18 03:27 Albumin/Globulin Ratio 1.2 (1-3) 07/25/18 03:27 TSH 6.94 mcIU/mL (0.34-5.60) H 07/25/18 03:27 07/25/18 07/25/18 03:27 06:02 Troponin I 0.00 0.01 Diagnostic Imaging: Cardiac Catheterization - (12/29/2015) Left heart catheterization, left ventriculography No obstructive coronary disease. Normal LV systolic function. Systolic hypertension with probable diastolic dysfunction. Non-ischemic troponin elevation. False-positive stress echo with dobutamine for ischemia. EKG Data: EKG 07/25/2018: Rapid afib 146 bpm with non-specific st changes and pvc vs. kike beat Repeat EKG: sinus bradycardia 52 bpm, otherwise normal ekg, normal qtc 06/05/2018: Rapid afib 140 bpm ekg 12/26/2016: sinus bradycardia and reliable junctional escape ~ 40 bpm on very high dose digoxin. (asymptomatic) Holter Monitor - (06/26/2018) Min HR 36 bpm, avg 46 bpm, max 113 bpm, 218 pac's , several brief atrial tachyarrhythmias, max 1.9 second pause Holter Monitor - (04/21/2017) Patient had palpitations/thumps associated with PAC and PVC's (4 PVC's, 280 PAC's), no arrhythmias, no significant pauses. Min HR 40 bpm, avg 50 bpm, max 84 bpm. Echocardiogram - (05/04/2015) IVS and LPWD 1.0 cm, EF 60-65%. LA mildly dilated. Sclerosis on AV. Trace TR, [place], mild PHTN. Holter Monitor - (02/22/2013) Symptomatic SVT, no sustained tachyarrhythmia. Low resting Hr. Holter Monitor - (09/07/2013) Normal sinus rhythm: 46bpm ( sleep) 87 bpm ( shopping). Rare PVCs. Several short bursts SVT. Pt c/o " blips": NSR, no ectopy. Dobutamine stress echo - (12/28/2015) Chest pain, right jaw pain and back pain with 40 mcg/kg/min dobutamine, septal hypokinesis at peak HR, non-specific ST changes. False positive study normal angiogram Assessment/Plan Radha Guardado is a 68 year old woman with known remote alcohol abuse, obesity, sinus node dysfunction (see conversations from prior outpatient notes), symptomatic PVC and PAC's, paroxysmal rapid atrial fibrillation on aspirin admitted with symptomatic rapid atrial fibrillation had 3.2 second post- conversion pause with high dose IV diltiazem, now back to her baseline resting sinus bradycardia long-standing and doing well. - Continue digoxin as prior - Continue aspirin - continue flecainide at increased dose 100 mg po bid - If BP remains high can add AceI/ARB or norvasc. Would avoid thiazide diuretic for now with anti-arrhythmic med - Can be discharged from a cardiac standpoint today, will arrange f/u Thank you for allowing me to participate in the cardiovascular care of this patient. Please do not hesitate to contact me with questions or concerns.
[2018-07-26 11:38] VITALS: BP 149/87
[2018-07-26] MEDS ORDERED: Lisinopril TAB* 5 MG PO SCH (12:00)
[2018-07-27] MEDS ORDERED: Digoxin TAB* 0.25 MG PO SCH (09:00)
--- NOTE | 2018-07-28 13:54 | DS ---
CC: Dr. Iva Beltran; Dr. Matthieu Oliveros; Aurelio Ye DO DISCHARGE SUMMARY: DATE OF ADMISSION: 07/25/18 DATE OF DISCHARGE: 07/26/18 PRIMARY CARE PROVIDER: Dr. Iva Beltran. MY ATTENDING WHILE IN THE HOSPITAL: Dr. Matthieu Oliveros. PATIENT'S CIGARETTE PACKING MACHINE OPERATOR: Aurelio Ye DO. PRIMARY DISCHARGE DIAGNOSES: Atrial fibrillation with rapid ventricular response, sinus pause with c onversion from atrial fibrillation to sinus rhythm. SECONDARY DISCHARGE DIAGNOSES: 1. History of melanoma excision and lumpectomy. 2. History of sinus node dysfunction. STUDIES DONE WHILE IN THE HOSPITAL: Chest x-ray from 07/25/18, read as no evidence for acute disease . EKG shows atrial fibrillation, rate of 146, QTc of 474, normal axis, no interpretable ST segment a bnormalities, no blocks or hypertrophy. Repeat EKG from 07/25/18 shows normal sinus rhythm, rate of 52, no significant changes. Repeat EKG f rom 07/26/18 shows sinus bradycardia, rate of 45, QTc of 424 without significant changes. Overnight pulse oximetry reading shows 32 seconds of SpO2 less than 90. MEDICATIONS AT DISCHARGE: 1. Lansoprazole 50 mg p.o. b.i.d. 2. Lexapro 10 mg p.o. q.p.m. 3. Lanoxin 0.125 mg p.o. Friday, Friday, Friday. 4. Ranitidine 150 mg p.o. b.i.d. 5. Aspirin 162 mg p.o. daily. 6. Flecainide 100 mg p.o. b.i.d. 7. Lisinopril 5 mg p.o. daily. 8. Tylenol 650 mg p.o. q.4 hours as needed with blood pressure monitor. HOSPITAL COURSE: This is a brief summary of the patient's presentation. For more details, please se e the history and physical from Maryuri Santana DO, on 07/25/18. In brief, the patient is a 68-year-o ld female with past medical history significant for above who presented to the emergency department a t about 2 p.m. with palpitations and dizziness and was found to be in AFib with RVR. The patient was given 20 mg of IV diltiazem in the emergency department and converted back to sinus rhythm with 2 ap proximately 3-second pauses with this conversion. The patient was admitted to the hospital. The pat ient had sinus bradycardia after this as above. The patient was seen in consultation by Dr. Marty keyes who is her outpatient application internship who recommended an increase in her flecainide dosing to preven t recurrence of atrial fibrillation due to pauses. He also recommended overnight pulse oximetry due to a concern for undiagnosed sleep apnea predisposing to nocturnal atrial fibrillation; however, her pulse oximetry study was unremarkable as above. The patient had negative troponins. The patient had slightly high TSH, but normal T3 and T4. The patient's creatinine level was normal. The patient aranda d no other significant laboratory abnormalities. The patient had consistently high blood pressures w hile in the hospital. The patient was started on lisinopril. The patient was stable and amenable fo r discharge on 07/26/18. PHYSICAL EXAM ON THE DAY OF DISCHARGE: The patient is a 68-year-old female who appears stated age, s itting comfortably in bed, in no acute distress. HEENT: Head: Normocephalic, atraumatic. Sclera int act. No conjunctival injection. Nasal mucosa moist. Oral mucosa moist. No pharyngeal erythema, di scharge, or exudates. Neck is supple, nontender. No lymphadenopathy. No carotid bruit auscultated. No JVD. Cardiac: Bradycardia. No clicks, murmurs, gallops, rubs. Pulses 2+ bilaterally in dorsal is pedis, posterior tibialis, and radial areas. No bilateral lower extremity edema noted. No calf t enderness. Skin: Clean, dry and intact. No rash. Abdomen: Soft, nontender, nondistended. Bowel s ounds present, normoactive, in all 4 quadrants. No hepatosplenomegaly. No abdominal bruits ausculta allie. No hepatojugular reflux. Genitourinary: No suprapubic tenderness or CVA tenderness. Neuro: Cranial nerves II through XII grossly intact. No focal deficits. Alert and oriented x3. Psychiatri c: Pleasant and cooperative. Vital Signs: Temperature 98.5, pulse rate 38, respiratory rate 16, ox ygen saturation 90% on room air, blood pressure 149/87. DISCHARGE PLAN: The patient will be discharged to home. The patient will be on an increased dose on flecainide as above. The patient should follow up with her primary care provider within 1 week for general medical management. The patient should have an EKG and a BMP at that time. The patient has been instructed to check her blood pressure twice a day on her lisinopril medication and to bring the se readings to her primary care doctor. The patient to have repeat BMP to assess for hyperkalemia in 1 week. The patient should follow up with her outpatient application internship, Dr. Marty Ye, within 1 m [facility] for continued monitoring of her cardiac medications. The patient to return to the hospital for passing out, chest pain, shortness of breath, or other alarming symptoms. The patient should have he art-healthy diet without caffeine and engage in activities as tolerated. TIME SPENT: Approximately 60 minutes was spent on the discharge, 30 of which was spent [id number] with the patient and obtaining history and physical and discussing treatment plan. DANIELA ROBERSON [id number]/[facility] #: [id number]
== END 2018-07-26 14:35 | disposition home or self-care (01) ==
LOC: ED 02:28 → MEDTELE 05:46
PROVIDERS: ADMIT Hospitalist; ATTEND Internal Medicine
DX: I48.91 Unspecified atrial fibrillation (principal); R11.0 Nausea; R00.2 Palpitations; Z88.6 Allergy status to analgesic agent; I10 Essential (primary) hypertension; R07.9 Chest pain, unspecified; Z87.891 Personal history of nicotine dependence; I49.5 Sick sinus syndrome; E66.9 Obesity, unspecified; Z90.12 Acquired absence of left breast and nipple; Z96.651 Presence of right artificial knee joint; Z90.89 Acquired absence of other organs; Z79.82 Long term (current) use of aspirin; E03.9 Hypothyroidism, unspecified; K21.9 Gastro-esophageal reflux disease without esophagitis
CPT/HCPCS: 36415; 71045; 80048; 80053; 80162; 83605; 83735; 84436; 84443; 84479; 84484; 85025; 85610; 85730; 93005; 96372; 96374; 96375; 96376; 99284; A9270-GY; G0378; J1644

== ENCOUNTER 2018-08-03 11:58 | Observation (INO) | payer MEDICARE, MEDICAID ==
[2018-08-03] MEDS ORDERED: ceFAZolin* 2 GM* ONE DOSE (Duplex) IVPB (13:00)
[2018-08-03] MEDS ORDERED: ceFAZolin VIAL 1 GM in NS *SYRINGE * * 10 ML ONE (13:00)
[2018-08-03] MEDS ORDERED: Diazepam TAB(*) 5 MG ONE (13:09)
[2018-08-03] MEDS ORDERED: Lidocaine 1% INJ* 10 MG/ML 30 ML SDV ONE (13:12)
[2018-08-03] MEDS ORDERED: fentaNYL* 50 MCG/ML 2 ML VIAL (100 MCG VIAL) ONE (13:15)
[2018-08-03] MEDS ORDERED: Naloxone* 0.4 MG/ML 1 ML VIAL ONE (13:15)
[2018-08-03] MEDS ORDERED: Flumazenil* 0.1 MG/ML 5 ML MDV ONE (13:15)
[2018-08-03] MEDS ORDERED: Midazolam* 1 MG/ML 5 ML VIAL (5 MG) ONE ×2 (13:15→13:49)
[2018-08-03] MEDS ORDERED: oxyCODONE/Acetamin 5/325 MG* TAB PO PRN (14:46)
[2018-08-03] MEDS: Acetaminophen TAB* 325 MG PO PRN ×2 (15:52→22:10)
[2018-08-03] MEDS ORDERED: traMADol TAB* 50 MG PO PRN (16:47)
[2018-08-03] MEDS: ceFAZolin 1 GM VIAL(*) 1 GM in NS 0.9% 50 ML* 50 ML IVPB SCH (20:32)
[2018-08-03] MEDS: Omeprazole CAP* 20 MG PO SCH (20:40)
[2018-08-03] MEDS: Flecainide TAB* 100 MG PO SCH (20:40)
[2018-08-03] MEDS ORDERED: Citalopram TAB* 20 MG PO SCH (22:00)
--- NOTE | 2018-08-04 04:56 | OP ---
CC: Aurelio Ye DO * DATE OF OPERATION: 08/03/18 - ROOM #452 DATE OF : 52 SURGEON: Jamil Cotto MD ANESTHESIA: Local anesthesia with conscious sedation. PRE-OP DIAGNOSIS: Sick sinus syndrome, atrial fibrillation. POST-OP DIAGNOSIS: Sick sinus syndrome, atrial fibrillation. OPERATIVE PROCEDURE: Dual-chamber pacemaker implantation. ESTIMATED BLOOD LOSS: Nil. COMPLICATIONS: None. INDICATIONS: The patient is a 68-year-old woman with a history of paroxysmal atrial fibrillation. She has been on medical therapy for suppression of her atrial fibrillation. She also has a history of bradycardia and sick sinus syndrome. It was ultimately decided the pacemaker implantation would help with medical therapy. DESCRIPTION OF PROCEDURE: The patient was brought to the procedure room in a fasting state. Informed consent had been obtained prior to the procedure. All labs has been reviewed. The patient was placed supine on the procedure table. Her left deltopectoral area was cleaned and draped in the usual fashion. 1% lidocaine was used for local anesthesia. Under ultrasound guidance, the axillary vein was entered by a Seldinger technique and a guidewire was placed. The second guidewire was placed in the same technique. A 3.5 cm incision was made in the pectoral area. Blunt dissection was carried down to the pectoral fascia. A small pocket was fashioned for the pacemaker. Over the guidewire, a 7-Indian sheath introducer was placed through which a right ventricular lead was advanced at the RV apex, the right ventricular lead was a Medtronic [id number], serial number [id number]. It had an R-wave sensitivity of 10, impendence 1198, right ventricular threshold 1 V at 0.5 msec. The ventricular lead was sutured to the pectoral fascia. Over the second guidewire, a 7-Indian sheath introducer was placed through which a right atrial lead was advanced at the high right atrium. The right atrial lead is a Medtronic model 31182, serial number [id number]. It had a P-wave sensitivity of 2.8, impedance 669 Ohms, threshold 0.4 V at 0.5 msec. The atrial lead was sutured to the pectoral fascia. The pocket was flushed. A new generator was then attached appropriately to the atrioventricular lead. The generator is a Medtronic model W1DR01, serial number [id number]. The device was placed in the pocket. The surgical incision was closed in 3 layers. The patient was returned to holding area in stable condition. The patient's surgery was assisted by Derrek Smith, a medical student. Her involvement was minor suturing. I was personally responsible for placement of the leads and suturing of the leads to the fascia. [id number]/[facility] #: [id number] KITTY
[2018-08-04] MEDS: ceFAZolin 1 GM VIAL(*) 1 GM in NS 0.9% 50 ML* 50 ML IVPB SCH ×2 (05:37→12:43)
[2018-08-04] MEDS: Acetaminophen TAB* 325 MG PO PRN (06:18)
[2018-08-04] MEDS: Omeprazole CAP* 20 MG PO SCH (08:36)
[2018-08-04] MEDS: Flecainide TAB* 100 MG PO SCH (08:36)
[2018-08-04 15:09] VITALS: BP 127/69
--- NOTE | 2018-08-04 16:01 | DS ---
DISCHARGE SUMMARY: DATE OF ADMISSION: 08/03/18 DATE OF DISCHARGE: 08/04/18 INDICATION FOR ADMISSION: Dual-chamber pacemaker implantation. HISTORY OF PRESENT ILLNESS: The patient is a 68-year-old female with a history of sick sinus syndrome and atrial fibrillation. The patient was recommend to have a dual-chamber pacemaker by Dr. Ye. Please see admission history and physical for details of her presentation. SUMMARY OF HOSPITAL COURSE: The patient was taken to the operating room and had a dual-chamber Medtronic pacemaker implanted; this went without incident. The patient was observed overnight. This morning, the patient's incision site is healing well. There is no ecchymosis, no hematoma, no erythema. The dressing was changed. Chest x-ray this morning demonstrated normal position of her pacer lead. No evidence of other abnormalities. The patient had a pacemaker interrogation today. It showed normal function of her dual-chamber pacemaker. The patient is now at atrial standstill, so atrial sensing could not be done. DISCHARGE MEDICATIONS: 1. Aspirin 81 mg a day. 2. Cephalexin 250 mg 3 times a day for 3 days. 3. Digoxin 125 mg a day. 4. Diltiazem 120 mg a day. 5. Flecainide 100 mg b.i.d. 6. Lansoprazole 15 mg a day. 7. Lexapro 10 mg a day. The patient will not be taking her lisinopril 5 mg a day as it was replaced by the diltiazem. DISPOSITION: The patient will be discharged home. FOLLOWUP: Follow up with Dr. Ye in 1 week. [id number]/[facility] #: [id number] [facility]
== END 2018-08-04 15:00 | disposition home or self-care (01) ==
LOC: CHICATH 11:58 → UNDOADMIN 15:04 → MEDTELE 15:04
PROVIDERS: ADMIT Specialist; ATTEND Specialist
DX: I49.5 Sick sinus syndrome (principal); I48.0 Paroxysmal atrial fibrillation; Z79.82 Long term (current) use of aspirin; R00.2 Palpitations; I47.1 Supraventricular tachycardia; I49.1 Atrial premature depolarization; I49.3 Ventricular premature depolarization; E66.8 Other obesity; R00.1 Bradycardia, unspecified
CPT/HCPCS: 33208; 71045; 71046; 93005; 96374; 96376; 99156; 99157; A9270-GY; C1785; C1898; G0378; J0690; J2250; J2310; J3010